=== PATIENT | female | born 1955 | race Caucasian/White ===

== ENCOUNTER → 2018-01-01 17:53 | Outpatient (CLI) | payer OTHER, SELFPAY ==
[2018-01-01 18:43] LABS: Add Manual Diff / Slide Review NO; Basophils Percent Auto 0.3 % (0-2); Eosinophils Percent Auto 0.9 % (2-4); Hematocrit 38.9 % (36-46); Hemoglobin 13.1 g/dL (12.0-16.0); Lymphocytes Percent Auto 13.6 % (25-40); Mean Corpuscular HGB Conc 33.8 % (30-36); Mean Corpuscular Hemoglobin 31.2 PG (26-34); Mean Corpuscular Volume 92.4 fL (80-100); Monocytes Percent Auto 10.1 % (3-14); Neutrophils Absolute Auto 5300 /uL (3000-5900); Neutrophils Percent Auto 75.1 % (50-75); Platelet Count 293 X10^3/uL (150-400); Red Blood Cell Count 4.21 X10^6/uL (4.0-5.2); Red Cell Distribution Width 13.5 % (11.6-14.8); White Blood Cell Count 7.1 X10^3/uL (4.5-11.0)
[2018-01-01 18:57] LABS: Alanine Aminotransferase 34 IU/L (9-52); Albumin 4.6 g/dL (3.5-5.0); Albumin Globulin Ratio 1.8 (1.0-2.8); Alkaline Phosphatase 53 U/L (38-126); Aspartate Aminotransferase 31 IU/L (14-36); BUN Creatinine Ratio 16.7 (6-22); Bilirubin Total 0.5 mg/dL (0.2-1.3); Blood Urea Nitrogen 10 mg/dL (7-17); Calcium 9.2 mg/dL (8.4-10.2); Carbon Dioxide 31 mmol/L (22-32); Chloride 95 mmol/L (98-107); Estimated Glomerular Filt Rate > 60.0 mL/min (>60); Globulin 2.5 g/dL (1.7-4.1); Glucose 98 mg/dL (80-110); HEMOLYSIS 21 (0-50); Lipase 140 U/L (23-300); Sodium 136 mmol/L (137-145); Total Protein 7.1 g/dL (6.3-8.2)
== END ==
PROVIDERS: PCP Internal Medicine; Visit Provider Physician Assistant
DX: R10.9 Unspecified abdominal pain (principal)
CPT/HCPCS: 36415; 80053; 83690; 85025

== ENCOUNTER → 2018-02-09 13:06 | Outpatient (CLI) | payer OTHER, SELFPAY | PROVIDERS: Family Provider Internal Medicine; PCP Internal Medicine; Visit Provider Internal Medicine | DX: M81.0 Age-related osteoporosis without current pathological fracture (principal); Z78.0 Asymptomatic menopausal state; E07.9 Disorder of thyroid, unspecified; G35 Multiple sclerosis; Z82.62 Family history of osteoporosis; Z90.722 Acquired absence of ovaries, bilateral | CPT/HCPCS: 77080 ==

== ENCOUNTER → 2018-04-17 17:12 | Outpatient (CLI) | payer OTHER, SELFPAY ==
[2018-04-17 17:45] LABS: Add Manual Diff / Slide Review NO; Basophils Absolute Auto 0 /uL (0-100); Basophils Percent Auto 0.9 % (0-2); Eosinophils Absolute Auto 100 /uL (0-450); Eosinophils Percent Auto 1.5 % (2-4); Hematocrit 37.8 % (36-46); Hemoglobin 13.1 g/dL (12.0-16.0); Lymphocytes Absolute Auto 1000 /uL (1100-4500); Lymphocytes Percent Auto 22.7 % (25-40); Mean Corpuscular HGB Conc 34.8 % (30-36); Mean Corpuscular Hemoglobin 31.6 PG (26-34); Mean Corpuscular Volume 90.9 fL (80-100); Monocytes Absolute Auto 500 /uL (0-900); Monocytes Percent Auto 12.1 % (3-14); Neutrophils Absolute Auto 2700 /uL (1500-7000); Neutrophils Percent Auto 62.8 % (50-75); Platelet Count 287 X10^3/uL (150-400); Red Blood Cell Count 4.16 X10^6/uL (4.0-5.2); Red Cell Distribution Width 13.9 % (11.6-14.8); White Blood Cell Count 4.3 X10^3/uL (4.5-11.0)
[2018-04-17 18:06] LABS: Alanine Aminotransferase 38 IU/L (9-52); Albumin 4.9 g/dL (3.5-5.0); Albumin Globulin Ratio 1.6 (1.0-2.8); Alkaline Phosphatase 76 U/L (38-126); Aspartate Aminotransferase 31 IU/L (14-36); BUN Creatinine Ratio 24.4 (6-22); Bilirubin Total 0.4 mg/dL (0.2-1.3); Blood Urea Nitrogen 22 mg/dL (7-17); Calcium 9.6 mg/dL (8.4-10.2); Carbon Dioxide 28 mmol/L (22-32); Chloride 91 mmol/L (98-107); Estimated Glomerular Filt Rate > 60.0 mL/min (>60); Glucose 84 mg/dL (80-110); HEMOLYSIS < 15 (0-50); Potassium 4.6 mmol/L (3.4-5.1); Sodium 130 mmol/L (137-145); Total Protein 7.9 g/dL (6.3-8.2)
== END ==
PROVIDERS: PCP Internal Medicine; Visit Provider Physician Assistant
DX: G35 Multiple sclerosis (principal); E03.9 Hypothyroidism, unspecified
CPT/HCPCS: 36415; 80053; 84443; 85025

== ENCOUNTER → 2018-05-04 11:57 | Outpatient (CLI) | payer OTHER, SELFPAY ==
--- NOTE | 2018-05-04 | DI.MRI.S_ITS ---
PROCEDURE: MR CERVICAL SPINE WO CON INDICATIONS: PERIPHERAL ARTERY DISEASE - neck pain TECHNIQUE: Noncontrast sagittal T1 spin echo and T2 fast spin echo, sagittal STIR, foraminal oblique sagittal T2 fast spin echo, and axial gradient echo or T2 fast spin echo through the cervical spine. COMPARISON: [facility], CT, C-SPINE WITHOUT CONTRAST, 12/26/2015, 15:25. [facility], MR, C-SPINE W&WO CONTRAST, 06/22/2017, 13:43. FINDINGS: Image quality: Excellent. Alignment and Curvature: There is focal kyphosis in the lower cervical spine. There is grade 1 anterolisthesis at C3-C4 and C4-C5. Bone Marrow: Marrow demonstrates normal overall signal. Spinal Cord: Visualized spinal cord has normal size. Patchy foci of T2 hyperintensity are present in the cervical cord at the cervical cranial junction, C2, C4, C5 and C7-T1, minimally changed. No cerebellar tonsillar herniation. Paraspinous Soft Tissues: No paravertebral masses. Prevertebral soft tissues are normal in thickness. C2-C3: Preserved disc height. Mild disc desiccation. There is diffuse posterior disc bulge. Mild bilateral facet arthropathy. The central canal is patent. No foraminal stenosis. C3-C4: Preserved disc height. Mild disc desiccation. There is diffuse posterior disc bulge. Severe right and moderate left facet arthropathy. The central canal is patent. Moderate left and no significant right foraminal stenosis. C4-C5: Iegg-jk-onujcnym loss of disc height. Mild disc desiccation. There is diffuse posterior disc bulge and large posterior disc osteophyte complex. Bilateral uncovertebral hypertrophy. Moderate left and mild right facet arthropathy. The central canal is jqpq-wb-qwurbfytns narrowed. Moderate bilateral foraminal stenosis. C5-C6: Surgically fused. There is posterior osteophyte causing ssxc-ou-zklqsqhp central canal stenosis. Moderate right and mild left foraminal stenosis. C6-C7: Surgically fused. The central canal is patent. No foraminal stenosis. C7-T1: Mild loss of disc height and disc desiccation. No significant disc bulge. No central canal or foraminal stenosis. IMPRESSION: 1. Multiple foci of T2 hyperintense lesions involving the cervical cord as described, consistent with known history of multiple sclerosis. Compared to the last MRI, there is no significant change. 2. Multilevel degenerative and postsurgical as described. 3. Guwv-he-zbtqqifk central canal stenosis at C4-C5 and C5-C6. 4. Multilevel foraminal stenosis as described. Dictated by: Romeo Blum M.D. on 05/04/2018 at 13:48 Approved by: Romeo Blum M.D. on 05/04/2018 at 17:37
--- NOTE | 2018-05-04 | DI.US.S_ITS ---
PROCEDURE: US ARTERIAL DUPLEX LE BI INDICATIONS: PERIPHERAL ARTERY DISEASE TECHNIQUE: Color and pulse Doppler interrogation was performed of both lower extremity arterial systems, with image documentation. COMPARISON: None. FINDINGS: Right lower extremity: Common femoral artery: 122 cm/sec, with triphasic flow. Deep femoral artery: 51 cm/sec, with triphasic flow. Proximal superficial femoral artery: 84 cm/sec, with triphasic flow. Mid superficial femoral artery: 80 cm/sec, with triphasic flow. Distal superficial femoral artery: 51 cm/sec, with triphasic flow. Popliteal artery: 45 cm/sec, with triphasic flow. Posterior tibial artery: 28 cm/sec, with triphasic flow. Anterior tibial artery/dorsalis pedis: 47 cm/sec, with triphasic flow. Beck-scale imaging description: No hemodynamically significant stenosis. Left lower extremity: Common femoral artery: 129 cm/sec, with triphasic flow. Deep femoral artery: 49 cm/sec, with triphasic flow. Proximal superficial femoral artery: 94 cm/sec, with triphasic flow. Mid superficial femoral artery: 94 cm/sec, with triphasic flow. Distal superficial femoral artery: 54 cm/sec, with triphasic flow. Popliteal artery: 44 cm/sec, with triphasic flow. Posterior tibial artery: 68 cm/sec, with triphasic flow. Anterior tibial artery/dorsalis pedis: 57 cm/sec, with triphasic flow. Beck-scale imaging description: No hemodynamically significant stenosis. IMPRESSION: No hemodynamically significant stenosis of the bilateral lower extremity arteries. Dictated by: Polly Carreon M.D. on 05/04/2018 at 16:41 Approved by: Polly Carreon M.D. on 05/04/2018 at 16:48
== END ==
PROVIDERS: PCP Internal Medicine; Visit Provider Internal Medicine
DX: I73.9 Peripheral vascular disease, unspecified (principal); M54.2 Cervicalgia; M47.812 Spondylosis without myelopathy or radiculopathy, cervical region; M48.02 Spinal stenosis, cervical region; G35 Multiple sclerosis; Z98.1 Arthrodesis status
CPT/HCPCS: 72141; 93925

== ENCOUNTER → 2018-05-11 15:47 | Outpatient (CLI) | payer OTHER, SELFPAY ==
[2018-05-11 17:43] LABS: Thyroid Stimulating Hormone 1.48 uIU/mL (0.47-4.68)
== END ==
PROVIDERS: PCP Internal Medicine; Visit Provider Internal Medicine
DX: E03.9 Hypothyroidism, unspecified (principal)
CPT/HCPCS: 36415; 84443

== ENCOUNTER → 2018-05-26 12:58 | Outpatient (CLI) | payer OTHER, SELFPAY ==
--- NOTE | 2018-05-26 | DI.MG.S_ITS ---
BILATERAL DIGITAL SCREENING MAMMOGRAM 3D/2D WITH CAD: 05/26/2018 CLINICAL: Routine screening. Family history of breast cancer. Comparison is made to exams dated: 05/17/2017 mammogram, 01/23/2016 mammogram, and 01/17/2015 mammogram - [facility]. The tissue of both breasts is heterogeneously dense. This may lower the sensitivity of mammography. Current study was also evaluated with a Computer Aided Detection (CAD) system. No significant masses, calcifications, or other findings are seen in either breast. There has been no significant interval change. IMPRESSION: NEGATIVE There is no mammographic evidence of malignancy. A 1 year screening mammogram is recommended. This exam was interpreted at Station ID: [id number]. NOTE: For mammograms, a report in lay terms will be sent to the patient. Approximately 15% of breast malignancies will not be visualized mammographically. In the management of a palpable breast mass, a negative mammogram must not discourage biopsy of a clinically suspicious lesion. Electronically Signed By: Polly carey/brooklynn:05/26/2018 16:49:15 letter sent: Normal Exam ACR BI-RADS Category 1: Negative [id number]
[2018-05-26 15:01] LABS: BUN Creatinine Ratio 33.3 (6-22); Blood Urea Nitrogen 20 mg/dL (7-17); Carbon Dioxide 28 mmol/L (22-32); Chloride 94 mmol/L (98-107); Estimated Glomerular Filt Rate > 60.0 mL/min (>60); Glucose 79 mg/dL (80-110); HEMOLYSIS < 15 (0-50); Potassium 4.8 mmol/L (3.4-5.1); Sodium 132 mmol/L (137-145)
== END ==
PROVIDERS: PCP Internal Medicine; Visit Provider Internal Medicine
DX: Z12.31 Encounter for screening mammogram for malignant neoplasm of breast (principal); Z80.3 Family history of malignant neoplasm of breast; E87.1 Hypo-osmolality and hyponatremia
CPT/HCPCS: 36415; 77063; 77067; 80048

== ENCOUNTER → 2018-07-17 13:58 | Oncology outpatient (ONC) | payer OTHER, SELFPAY ==
[2018-07-17 15:44] VITALS: BP 131/87; PULSE 65; RESP 16; TEMP 36.6; O2SAT 100
[2018-07-17 15:55] LABS: BUN Creatinine Ratio 26.7 (6-22); Blood Urea Nitrogen 16 mg/dL (7-17); Estimated Glomerular Filt Rate > 60.0 mL/min (>60)
[2018-07-17] MEDS: ZOLEDRONIC ACID 5 MG in SODIUM CHLORIDE 0.9% 100 ML 145 ML IV (16:11)
== END ==
PROVIDERS: PCP Internal Medicine; Visit Provider Internal Medicine
DX: M81.0 Age-related osteoporosis without current pathological fracture (principal)
CPT/HCPCS: 36415; 82565; 84520; 96365; J3489

== ENCOUNTER → 2018-12-25 13:51 | Outpatient (CLI) | payer OTHER, SELFPAY ==
--- NOTE | 2018-12-25 | DI.MRI.S_ITS ---
PROCEDURE: MR HEAD/BRAIN WO/W CON INDICATIONS: Multiple sclerosis TECHNIQUE: Noncontrast sagittal and axial FLAIR, axial and coronal T2 fast spin echo, axial VIBE, axial gradient echo, axial diffusion and ADC through the brain. After the administration of contrast, axial and coronal VIBE with fat saturation through the brain. COMPARISON: [facility], MR, BRAIN W&WO CONTRAST, 07/10/2014, 12:48. [facility], MR, BRAIN W&WO CONTRAST, 08/09/2012, 13:19. FINDINGS: Image quality: Excellent. CSF spaces: Ventricles are normal in size and shape. Basal cisterns are patent. No extra-axial fluid collections. Brain: No intracranial bleeds or mass effects. Beck-white matter interface appears intact. Previously identified bilateral (right greater than left) foci of elevated flair signal consistent with underlying multiple sclerosis are stable over time and show no interval development of internal enhancement. These lesions are consistent with a clinical diagnosis of underlying quiecent multiple sclerosis. No abnormal intracranial enhancement. Diffusion weighted images show no acute ischemic insults. Brainstem appears normal. Normal intravascular flow voids are present. Skull and face: Calvarial marrow signal is normal. Orbits appear normal. Sinuses: Sinuses and mastoids are clear. IMPRESSION: Stable appearing right greater than left foci of elevated flair signal scattered within the deep white matter of each hemisphere, without new lesions or evidence of contrast enhancement. Underlying multiple sclerosis, quiecent, is the likely cause. Dictated by: Herman Waldrop M.D. on 12/25/2018 at 15:39 Approved by: Herman Waldrop M.D. on 12/25/2018 at 15:42
== END ==
PROVIDERS: PCP Internal Medicine; Visit Provider Internal Medicine
DX: G35 Multiple sclerosis (principal)
CPT/HCPCS: 36415; 70553; 85025; A9579

== ENCOUNTER → 2018-12-25 14:50 | Outpatient (CLI) | payer OTHER, SELFPAY ==
[2018-12-25 15:59] LABS: Add Manual Diff / Slide Review NO; Basophils Absolute Auto 100 /uL (0-100); Basophils Percent Auto 1.8 % (0-2); Eosinophils Absolute Auto 100 /uL (0-450); Eosinophils Percent Auto 1.3 % (2-4); Hemoglobin 12.7 g/dL (12.0-16.0); Lymphocytes Absolute Auto 900 /uL (1100-4500); Lymphocytes Percent Auto 18.2 % (25-40); Mean Corpuscular HGB Conc 34.3 % (30-36); Mean Corpuscular Hemoglobin 31.2 PG (26-34); Mean Corpuscular Volume 90.9 fL (80-100); Monocytes Absolute Auto 500 /uL (0-900); Neutrophils Absolute Auto 3500 /uL (1500-7000); Neutrophils Percent Auto 69.7 % (50-75); Platelet Count 314 X10^3/uL (150-400); Red Blood Cell Count 4.07 X10^6/uL (4.0-5.2); Red Cell Distribution Width 14.2 % (11.6-14.8)
== END ==
PROVIDERS: Family Provider Internal Medicine; PCP Internal Medicine; Visit Provider Psychiatry & Neurology Neurology
DX: G35 Multiple sclerosis (principal)
CPT/HCPCS: 36415; 85025

== ENCOUNTER → 2019-02-01 15:59 | Outpatient (ROUT) | payer OTHER, SELFPAY ==
[2019-02-01 16:54] LABS: Add Manual Diff / Slide Review NO; Basophils Absolute Auto 100 /uL (0-100); Basophils Percent Auto 1.2 % (0-2); Eosinophils Absolute Auto 100 /uL (0-450); Hematocrit 35.8 % (36-46); Hemoglobin 12.2 g/dL (12.0-16.0); Lymphocytes Absolute Auto 900 /uL (1100-4500); Lymphocytes Percent Auto 17.4 % (25-40); Mean Corpuscular HGB Conc 34.2 % (30-36); Mean Corpuscular Hemoglobin 31.8 PG (26-34); Mean Corpuscular Volume 92.9 fL (80-100); Monocytes Absolute Auto 600 /uL (0-900); Neutrophils Absolute Auto 3400 /uL (1500-7000); Neutrophils Percent Auto 68.4 % (50-75); Platelet Count 316 X10^3/uL (150-400); Red Blood Cell Count 3.85 X10^6/uL (4.0-5.2); Red Cell Distribution Width 13.6 % (11.6-14.8); White Blood Cell Count 4.9 X10^3/uL (4.5-11.0)
[2019-02-01 16:58] LABS: Alanine Aminotransferase 24 IU/L (<35); Albumin 4.3 g/dL (3.5-5.0); Albumin Globulin Ratio 1.7 (1.0-2.8); Alkaline Phosphatase 63 U/L (38-126); Aspartate Aminotransferase 29 IU/L (14-36); BUN Creatinine Ratio 25.7 (6-22); Bilirubin Total 0.3 mg/dL (0.2-1.3); Blood Urea Nitrogen 18 mg/dL (7-17); Calcium 9.4 mg/dL (8.4-10.2); Carbon Dioxide 29 mmol/L (22-32); Chloride 96 mmol/L (98-107); Cholesterol 165 mg/dL (140-199); Estimated Glomerular Filt Rate > 60.0 mL/min (>60); Globulin 2.6 g/dL (1.7-4.1); Glucose 71 mg/dL (80-110); HDL Cholesterol 101 mg/dL (40-60); HEMOLYSIS < 15 (0-50); LDL Cholesterol Calculated 49 mg/dL (<100); Potassium 4.3 mmol/L (3.4-5.1); Sodium 133 mmol/L (137-145); Total Protein 6.9 g/dL (6.3-8.2); Triglycerides 73 mg/dL (35-150)
[2019-02-01 17:29] LABS: Thyroid Stimulating Hormone 0.03 uIU/mL (0.47-4.68)
== END ==
PROVIDERS: Family Provider Internal Medicine; PCP Internal Medicine; Visit Provider Internal Medicine
DX: Z00.00 Encounter for general adult medical examination without abnormal findings (principal); G35 Multiple sclerosis; E03.9 Hypothyroidism, unspecified
CPT/HCPCS: 80053; 80061; 84443; 85025

== ENCOUNTER → 2019-02-21 14:13 | Outpatient (CLI) | payer OTHER, SELFPAY ==
[2019-02-21 15:24] LABS: Thyroid Stimulating Hormone 1.62 uIU/mL (0.47-4.68)
== END ==
PROVIDERS: PCP Internal Medicine; Visit Provider Internal Medicine
DX: E03.9 Hypothyroidism, unspecified (principal)
CPT/HCPCS: 36415; 84443

== ENCOUNTER → 2019-08-17 18:52 | Outpatient (ROUT) | payer OTHER, SELFPAY | PROVIDERS: PCP Internal Medicine; Visit Provider Physician Assistant | DX: N39.0 Urinary tract infection, site not specified (principal) | CPT/HCPCS: 87077; 87086; 87147 ==

== ENCOUNTER 2019-10-25 16:05 | Emergency (ER) | payer OTHER, SELFPAY ==
--- NOTE | 2019-10-25 16:10 | ED_ITS ---
HPI - Extremity Injury (Upper) <Mag Dai PA-C - Last Filed: 10/25/19 21:47> General Chief Complaint: Extremity Injury, Upper Stated Complaint: fall, dislocated finger Time Seen by Provider: 10/25/19 16:09 Source: patient and family History of Present Illness HPI narrative: this Is a 63-year-old woman with a history of MS, HTN, uses a walker who presents POV with her to the emergency department after sustaining a fall and injuring her left finger today. She has a dislocated left middle finger she says she falls frequently due to MS which is what happened today. She denies hitting her head, loss of consciousness, any prodrome of dizziness or lightheadedness prior to the fall, any dizziness or lightheadedness after the fall, or any other injury. She refuses any pain medicines including Tylenol and ibuprofen, she accepts a digital block prior to reduction. She does also say she would be willing to accept some ice to place on her finger. She states she has a 10/10 pain in her left finger. Denies numbness/tingling. complaint: injury to: left and finger Onset (ago): minute(s) (30) Other Extremity Injury: Left: fingers (middle) Other injuries: none Place: home Severity: severe Severity scale (1-10): 10 Relieving factors: none Exacerbating factors: movement of extremity Context: fall Associated symptoms: denies other symptoms Related Data Home Medications Medication Instructions Recorded Confirmed BORAGE SEED OIL/GAMMA LINOLE 1 sgl PO QDAY #0 12/01/12 01/01/18 (#BORAGE 1000 MG-200 MG) amlodipine 5 mg PO QPM #0 12/01/12 10/25/19 clonazepam 0.25 mg PO QID #0 tab 12/01/12 10/25/19 lisinopril 20 mg PO QDAY #0 12/01/12 10/25/19 spironolactone 50 mg PO BID #0 tab 12/17/15 10/25/19 carbamazepine 200 mg PO QID #0 01/27/17 10/25/19 nortriptyline 50 mg PO BID #0 01/27/17 10/25/19 clonidine HCl #0 06/01/17 01/01/18 calcium carbonate 1 tab PO QDAY #0 06/07/17 01/01/18 clobetasol 1 nuria TOPICAL BID #0 06/07/17 01/01/18 multivitamin [Multiple Vitamins] 1 tab PO QDAY #0 06/07/17 01/01/18 polyethylene glycol 3350 [Miralax] 17 gm PO PRN PRN #0 06/07/17 01/01/18 vitamin B complex [B 1 tab PO QDAY #0 06/07/17 10/25/19 Complex-Vitamin B12] carvedilol 25 mg PO BID 10/25/19 10/25/19 gabapentin 300 mg PO TID 10/25/19 10/25/19 methocarbamol 750 mg PO 5XD 10/25/19 10/25/19 Previous Rx's Medication Instructions Recorded loperamide 2 mg tablet 2 mg PO Q2-4H PRN #30 tab 01/01/18 omeprazole 20 mg capsule,delayed 20 mg PO DAILY PRN #30 cap 01/01/18 release Allergies Allergy/AdvReac Type Severity Reaction Status Date / Time adhesive [ADHESIVE] Allergy Intermediate RASH Verified 10/25/19 16:20 erythromycin base Allergy Intermediate RASH Verified 01/01/18 16:34 [ERYTHROMYCIN BASE] fluoxetine [From PROZAC] Allergy Intermediate ANXIOUS, Verified 10/25/19 16:20 JITTERY metoprolol [METOPROLOL] Allergy Intermediate RASH Verified 10/25/19 16:20 neomycin Allergy Intermediate RASH Verified 10/25/19 16:20 [From NEOSPORIN ([id number])] polymyxin B Allergy Intermediate RASH Verified 01/01/18 16:34 [From NEOSPORIN ([id number])] sertraline [From ZOLOFT] Allergy Intermediate UPSET Verified 10/25/19 16:20 STOMACH, NO LIBIDO iodine [IODINE] Allergy Mild RASH Verified 10/25/19 16:20 nitrofurantoin Allergy Unknown Gastrointestinal Verified 10/25/19 16:20 [NITROFURANTOIN] Upset codeine [CODEINE] AdvReac Severe STOMACH Verified 10/25/19 16:20 UPSET,VOMITING. venlafaxine [VENLAFAXINE] AdvReac Unknown NO LIBIDO Verified 01/01/18 16:34 Review of Systems <Mag Dai PA-C - Last Filed: 10/25/19 21:47> Review of Systems Narrative: GENERAL: Denies chills, fatigue, malaise, fever, sweats. HEENT: Denies sinus pain, ear pain, sore throat, difficulty swallowing, dizziness. RESPIRATORY: Denies dyspnea, cough, wheezing, hemoptysis, sputum. CARDIOVASCULAR: Denies chest pain, palpitations, orthopnea, edema, GASTROINTESTINAL: Denies nausea, vomiting, abdominal pain, diarrhea, constipation, melena. : Denies dysuria, frequency, incontinence, hematuria, urinary retention. MUSCULOSKELETAL: denies weakness, joint pain, or bony pain SKIN: Denies rash, skin lesions, or other NEUROLOGIC: Chronic weakness related to her MS, negative for, headache, numbness, change in speech, confusion, seizures, positive for incoordination related to her MS uses a walker. PSYCHIATRIC: No concerning psychosocial issues. 12 point review of systems is negative except for those stated above Patient History <Mag Dai PA-C - Last Filed: 10/25/19 21:47> Social History Smoking Status: Never smoker Smoking Status: Never smoker Exam <Mag Dai PA-C - Last Filed: 10/25/19 21:47> Narrative Exam Narrative: GENERAL: 63 year old patient appears stated age. Well-nourished, well-developed patient, in moderate distress. HEAD: Atraumatic. Normocephalic. EYES: Pupils equal round and reactive. Extraocular motions intact. No scleral icterus. No injection or drainage. ENT: Nose without bleeding, purulent drainage. Throat without erythema, tonsillar hypertrophy or exudate. Airway patent. NECK: Trachea midline. Non tender CARDIOVASCULAR: Regular rate and rhythm without murmurs, gallops, or rubs. RESPIRATORY: Clear to auscultation. Breath sounds equal bilaterally. No wheezes, rales, or rhonchi. GASTROINTESTINAL: Abdomen soft, non-tender, nondistended. EXTREMITIES: Left middle finger is posteromedially displaced/deformed at the PIP joint, dislocated, skin is not broken, capillary refill is intact, 3 seconds skin color is pink, sensation is intact, the proximal digit is slighlty swollen. No other edema or joint tenderness. On re-examination after reduction her capillary refill is less than 2 seconds, skin remains pink, sensation intact. Movement is intact. BACK: Nontender without deformity or crepitance. No flank tenderness. NEURO: AOx3. SKIN: No rash or erythema of visible areas Initial Vital Signs Initial Vital Signs: Vital Signs Temperature 98.8 F 10/25/19 16:12 Pulse Rate 70 10/25/19 16:12 Respiratory Rate 16 10/25/19 16:12 Blood Pressure 201/121 H 10/25/19 16:12 Pulse Oximetry 98 10/25/19 16:12 <Shahram Flynn MD - Last Filed: 10/26/19 08:45> Initial Vital Signs Initial Vital Signs: Vital Signs Temperature 98.8 F 10/25/19 16:12 Pulse Rate 70 10/25/19 16:12 Respiratory Rate 16 10/25/19 16:12 Blood Pressure 201/121 H 10/25/19 16:12 Pulse Oximetry 98 10/25/19 16:12 Procedures <Mag Dai PA-C - Last Filed: 10/25/19 21:47> Orthopedic Joint Reduction Joint #1: Time Out Performed: Yes Side: left Joint Reduction Location: finger (3rd fignger PIP) Analgesia: nerve block (digital block) Local Anesthesia: lidocaine 2% Amount of anesthesic used (mL): 6 Technique used: traction/counter-traction and direct manipulation Post-reduction neuro exam: intact Post-reduction vascular: intact Post Reduction X-Ray Obtained: Yes Post Reduction X-Ray Results: reduced Splint Applied: Yes Patient Tolerated Procedure: Well and No complications Additional Comments: negative for fracture pre and post reduction; patient splinted with finger splint and reassessed after splinting, neurovascularly intact Scores <Mag Dai PA-C - Last Filed: 10/25/19 21:47> GCS [place] coma scale eye opening: Spontaneous Bharat coma scale verbal response: Orientated [place] coma scale motor response: Obey commands Bharat coma scale total score: 15 Course <Mag Dai PA-C - Last Filed: 10/25/19 21:47> Orders Ordered: Discontinued Medications Lidocaine HCl (Xylocaine 1%) 8 ml SUBCUT NOW ONE Stop: 10/25/19 16:31 Last Admin: 10/25/19 17:42 Dose: Not Given Documented by: MYRNA Vital Signs Vital signs: Vital Signs - 8 hr 10/25/19 16:12 Temperature 98.8 F Pulse Rate 70 Respiratory Rate 16 Blood Pressure 201/121 H Pulse Oximetry 98 <Shahram Flynn MD - Last Filed: 10/26/19 08:45> Orders Ordered: Discontinued Medications Lidocaine HCl (Xylocaine 1%) 8 ml SUBCUT NOW ONE Stop: 10/25/19 16:31 Last Admin: 10/25/19 17:42 Dose: Not Given Documented by: MYRNA Vital Signs Vital signs: Vital Signs - 8 hr 10/25/19 16:12 Temperature 98.8 F Pulse Rate 70 Respiratory Rate 16 Blood Pressure 201/121 H Pulse Oximetry 98 MDM - Extremity Injury (Upper) <Mag Dai PA-C - Last Filed: 10/25/19 21:47> Differential Diagnosis Differential diagnosis: Likely finger sprain, dislocation of finger and other (sprain and strain of finger) Medical Records Attestation: I reviewed the patient's medical records. Imaging Data Extremity x-ray #1: Attestation: I personally reviewed and interpreted this imaging study as follows: Radiologist's Impression: [address] [address] XRay Report Signed Patient: Enedina Tuttle GMR#: [id number] : 5Acct:[id number] Age/Sex: 63 / FDate of Service: 10/25/19 Loc: ED Accession Number: [id number] Procedure: XR finger LT min 2V Ordering Provider: Mag Dai P.A-C PROCEDURE: XR FINGER LT MIN 2V INDICATIONS: dislocation TECHNIQUE: AP hand, 2 views of the left finger(s) acquired. COMPARISON: None. FINDINGS: Bones: Dislocation of the middle finger PIP joint. No fracture identified. Soft tissues: No suspicious soft tissue calcifications. IMPRESSION: Dislocation of the middle finger PIP joint. Dictated by: Gabriel Blanchard M.D. on 10/25/2019 at 16:45 Approved by: Gabriel Blanchard M.D. on 10/25/2019 at 16:47 Extremity x-ray #2: Attestation: I personally reviewed and interpreted this imaging study as follows: Radiologist's Impression: [address] [address] XRay Report Signed Patient: Enedina Tuttle GMR#: [id number] : 5Acct:[id number] Age/Sex: 63 / FDate of Service: 10/25/19 Loc: ED Accession Number: [id number] Procedure: XR finger LT min 2V Ordering Provider: Mag Dai P.A-C PROCEDURE: XR FINGER LT MIN 2V INDICATIONS: post reduction xr TECHNIQUE: AP hand, 2 views of the 5th finger(s) acquired. COMPARISON: [facility], , XR FINGER LT MIN 2V, 10/25/2019, 16:24. FINDINGS: Bones: Interval reduction of 5th PIP joint. There is good anatomic alignment. No visualized fracture. Soft tissues: No suspicious soft tissue calcifications. IMPRESSION: Good anatomic alignment of 5th PIP joint reduction without visu alized fracture. Dictated by: Annie Brooks M.D. on 10/25/2019 at 17:36 Approved by: Annie Brooks M.D. on 10/25/2019 at 17:37 [facility] Narrative Medical decision making narrative: This is an uncomfortable appearing 63-year-old with a history of MS who presents with a left middle finger dislocation with angulation, skin is not broken, no evidence of fracture on x- ray pre and post reduction. She has reduced without incident, after digital block as above and procedures, she prefers no prescription for stronger pain medicine, plan to follow-up with her PCP also given the option to follow up with Orthopedics if she prefers. Splinted for support. He has no other injuries on exam, no other tenderness or pain of her affected hand. Neurovascularly intact after splinting. Emergency return precautions provided, all questions answered. Discharge Plan Departure Patient Disposition: Home Clinical Impression: Finger pain, left Dislocation of proximal interphalangeal joint of left middle finger Qualifiers: Encounter type: initial encounter Qualified Code(s): S63.283A - Dislocation of proximal interphalangeal joint of left middle finger, initial encounter Discharge Date/Time: 10/25/19 17:55 Instructions: DI for Finger Dislocation Activity Restrictions/Additional Instructions: Thank you for allowing us to be part of your care in the emergency department today. After icing and performing a digital block on your injured finger, as well as an initial x-ray your finger was reduced. It was x-rayed again to evaluate for proper placement and splinted. There is no evidence of an emergent or life threatening illness at this time, but follow up with your doctor in 1-5 days is recommended nonetheless to re-evaluate your injury. I generally recommend alternating Tylenol and ibuprofen for pain if he can take his medications, you can also continue to ice her finger on and off tonight, elevated above the level of your heart as much as possible over the next few days, and keep it splinted to protect it both from injury and to keep you from bending it too much. It is at a higher risk of dislocating again until it has a little bit of a chance to heal which is why it is important to keep wearing a splint to have your joint in alignment for at least the next 1-2 weeks. If you would like to follow-up with an orthopedic doctor that is an option, I have included their information here in your paperwork. It is also fine to follow up with your regular primary care doctor. Please call the office for an appointm ent. Please return to the Emergency Department for any worsening or persistent symptoms. Please take medications as directed. Prescriptions: No Action omeprazole 20 mg capsule,delayed release(DR/EC) 20 mg PO DAILY PRN (Reason: stomach upset) Qty: 30 RF: 0 loperamide [Imodium A-D] 2 mg tablet 2 mg PO Q2-4H PRN (Reason: loose stool) Qty: 30 RF: 0 amlodipine 10 MG tablet 5 mg PO QPM Qty: 0 RF: 0 clonazepam 0.5 MG tablet 0.25 mg PO QID Qty: 0 RF: 0 lisinopril 20 MG tablet 20 mg PO QDAY Qty: 0 RF: 0 BORAGE SEED OIL/GAMMA LINOLE (#BORAGE 1000 MG-200 MG) 1 sgl PO QDAY Qty: 0 RF: 0 spironolactone 50 MG tablet 50 mg PO BID Qty: 0 RF: 0 carbamazepine 200 MG tablet 200 mg PO QID Qty: 0 RF: 0 nortriptyline 25 MG capsule 50 mg PO BID Qty: 0 RF: 0 clonidine HCl 0.3 MG tablet Qty: 0 RF: 0 calcium carbonate 500 MG tablet 1 tab PO QDAY Qty: 0 RF: 0 clobetasol 0.05 % ointment 1 nuria Topical BID Qty: 0 RF: 0 polyethylene glycol 3350 [Miralax] 17 GM powder in packet 17 gm PO PRN PRNQty: 0 RF: 0 multivitamin [Multiple Vitamins] 1 EACH tablet 1 tab PO QDAY Qty: 0 RF: 0 vitamin B complex [B Complex-Vitamin B12] 1 EACH tablet 1 tab PO QDAY Qty: 0 RF: 0 carvedilol 25 mg Tablet 25 mg PO BID RF: 0 methocarbamol 750 mg Tablet 750 mg PO 5XD RF: 0 gabapentin 300 mg Capsule 300 mg PO TID RF: 0 Referrals: Destiny Hurley MD [Physician] - (Left 3rd finger dislocation, PIP, reduced in ED negative fracture) Brian Willams MD [Primary Care Provider] -
[2019-10-25 16:12] VITALS: BP 201/121; PULSE 70; RESP 16; TEMP 37.1; O2SAT 98; BMI 21.6
--- NOTE | 2019-10-25 17:03 | DI.RAD.S_ITS ---
PROCEDURE: XR FINGER LT MIN 2V INDICATIONS: post reduction xr TECHNIQUE: AP hand, 2 views of the 5th finger(s) acquired. COMPARISON: [facility], , XR FINGER LT MIN 2V, 10/25/2019, 16:24. FINDINGS: Bones: Interval reduction of 5th PIP joint. There is good anatomic alignment. No visualized fracture. Soft tissues: No suspicious soft tissue calcifications. IMPRESSION: Good anatomic alignment of 5th PIP joint reduction without visualized fracture. Dictated by: Annie Brooks M.D. on 10/25/2019 at 17:36 Approved by: Annie Brooks M.D. on 10/25/2019 at 17:37
[2019-10-25] MEDS: LIDOCAINE 2% INJ MDV 20 ML (17:42)
== END 2019-10-25 17:55 | disposition home or self-care (01) ==
PROVIDERS: Emergency Provider Student in an Organized Health Care Education/Training Program; PCP Internal Medicine
DX: S63.283A Dislocation of proximal interphalangeal joint of left middle finger, initial encounter (principal); G35 Multiple sclerosis; Z91.81 History of falling; W19.XXXA Unspecified fall, initial encounter
CPT/HCPCS: 26700; 64450; 73140; 99283

== ENCOUNTER → 2019-12-19 16:09 | Outpatient (CLI) | payer OTHER, SELFPAY ==
[2019-12-19 17:54] LABS: Add Manual Diff / Slide Review NO; Basophils Absolute Auto 0 /uL (0-100); Basophils Percent Auto 0.8 % (0-2); Eosinophils Absolute Auto 100 /uL (0-450); Eosinophils Percent Auto 1.2 % (2-4); Hematocrit 37.5 % (36-46); Lymphocytes Absolute Auto 900 /uL (1100-4500); Lymphocytes Percent Auto 19.3 % (25-40); Mean Corpuscular HGB Conc 34.6 % (30-36); Mean Corpuscular Hemoglobin 31.7 PG (26-34); Mean Corpuscular Volume 91.6 fL (80-100); Monocytes Absolute Auto 500 /uL (0-900); Monocytes Percent Auto 9.6 % (3-14); Neutrophils Absolute Auto 3300 /uL (1500-7000); Neutrophils Percent Auto 69.1 % (50-75); Platelet Count 256 X10^3/uL (150-400); Red Cell Distribution Width 13.6 % (11.6-14.8); White Blood Cell Count 4.7 X10^3/uL (4.5-11.0)
[2019-12-19 18:15] LABS: Alanine Aminotransferase 26 IU/L (<35); Albumin 4.1 g/dL (3.5-5.0); Albumin Globulin Ratio 1.4 (1.0-2.8); Alkaline Phosphatase 54 U/L (38-126); Aspartate Aminotransferase 33 IU/L (14-36); BUN Creatinine Ratio 15.7 (6-22); Bilirubin Total 0.4 mg/dL (0.2-1.3); Blood Urea Nitrogen 16 mg/dL (7-17); Calcium 8.6 mg/dL (8.4-10.2); Carbon Dioxide 33 mmol/L (22-32); Chloride 96 mmol/L (98-107); Estimated Glomerular Filt Rate 54.6 mL/min (>60); Glucose 106 mg/dL (80-110); HEMOLYSIS 16 (0-50); Potassium 4.3 mmol/L (3.4-5.1); Sodium 132 mmol/L (137-145); Total Protein 7.1 g/dL (6.3-8.2)
== END ==
PROVIDERS: PCP Internal Medicine; Referring Provider Psychiatry & Neurology Neurology; Visit Provider Psychiatry & Neurology Neurology
DX: G50.0 Trigeminal neuralgia (principal)
CPT/HCPCS: 36415; 80053; 85025

== ENCOUNTER → 2020-04-19 14:01 | Outpatient (CLI) | payer OTHER, SELFPAY ==
--- NOTE | 2020-04-19 14:03 | DI.MG.S_ITS ---
BILATERAL DIGITAL SCREENING MAMMOGRAM 3D/2D WITH CAD: 04/19/2020 CLINICAL: Routine screening. Family history of breast cancer. Comparison is made to exams dated: 05/26/2018 mammogram, 05/17/2017 mammogram, 01/23/2016 mammogram, 01/17/2015 mammogram, and 12/13/2013 mammogram - [facility]. The tissue of both breasts is heterogeneously dense. This may lower the sensitivity of mammography. Current study was also evaluated with a Computer Aided Detection (CAD) system. There are possible new grouped punctate calcifications in the left breast posterior depth medial region seen on the craniocaudal view only. No other significant masses, calcifications, or other findings are seen in either breast. IMPRESSION: INCOMPLETE: NEEDS ADDITIONAL IMAGING EVALUATION The possible new grouped punctate calcifications in the left breast are indeterminate. Mediolateral, spot magnification, and additional views are recommended. This exam was interpreted at Station ID: [id number]. NOTE: For mammograms, a report in lay terms will be sent to the patient. Approximately 15% of breast malignancies will not be visualized mammographically. In the management of a palpable breast mass, a negative mammogram must not discourage biopsy of a clinically suspicious lesion. Electronically Signed By: Raymond Min M.D. aty/:04/21/2020 08:22:43 letter sent: Additional Imaging Needed ACR BI-RADS Category 0: Incomplete 3340F
== END ==
PROVIDERS: PCP Internal Medicine; Referring Provider Internal Medicine; Visit Provider Internal Medicine
DX: Z12.31 Encounter for screening mammogram for malignant neoplasm of breast (principal); Z80.3 Family history of malignant neoplasm of breast
CPT/HCPCS: 77063; 77067

== ENCOUNTER → 2020-05-08 13:25 | Outpatient (CLI) | payer OTHER, SELFPAY ==
--- NOTE | 2020-05-08 | DI.MG.S_ITS ---
UNILATERAL LEFT DIGITAL DIAGNOSTIC MAMMOGRAM 3D/2D WITH ADDITIONAL VIEWS: 05/08/2020 CLINICAL: Additional evaluation requested from prior study. Comparison is made to exams dated: 04/19/2020 mammogram, 05/26/2018 mammogram, and 05/17/2017 mammogram - [facility]. The tissue of left breast is heterogeneously dense. This may lower the sensitivity of mammography. There are possible vascular calcifications in the left breast posterior depth medial region seen on the craniocaudal view only. These may correlate with the calcifications seen on screening. A suspicious grouping of calcifications was not able to be found on today's study. No other significant masses or calcifications are seen in the breast. IMPRESSION: PROBABLY BENIGN The calcifications in the left breast are possibly vascular or possibly Gen-view artifact and are probably benign. A follow-up left mammogram in 6 months is recommended to demonstrate stability or resolution. Findings and recommendations were conveyed to the patient at time of exam. This exam was interpreted at Station ID: [id number]. NOTE: For mammograms, a report in lay terms will be sent to the patient. Approximately 15% of breast malignancies will not be visualized mammographically. In the management of a palpable breast mass, a negative mammogram must not discourage biopsy of a clinically suspicious lesion. Electronically Signed By: Lorena marques/:05/08/2020 15:01:00 letter sent: Followup Recommended ACR BI-RADS Category 3: Probably benign 3343F
== END ==
PROVIDERS: PCP Internal Medicine; Referring Provider Internal Medicine; Visit Provider Internal Medicine
DX: R92.8 Other abnormal and inconclusive findings on diagnostic imaging of breast (principal)
CPT/HCPCS: 77065; G0279

== ENCOUNTER → 2020-05-23 15:14 | Outpatient (CLI) | payer OTHER, SELFPAY ==
[2020-05-23 16:11] LABS: Add Manual Diff / Slide Review NO; Basophils Absolute Auto 0 /uL (0-100); Basophils Percent Auto 0.5 % (0-2); Eosinophils Absolute Auto 100 /uL (0-450); Eosinophils Percent Auto 1.3 % (2-4); Hematocrit 35.9 % (36-46); Hemoglobin 12.3 g/dL (12.0-16.0); Lymphocytes Absolute Auto 1300 /uL (1100-4500); Lymphocytes Percent Auto 22.1 % (25-40); Mean Corpuscular HGB Conc 34.3 % (30-36); Mean Corpuscular Hemoglobin 32.6 PG (26-34); Monocytes Absolute Auto 600 /uL (0-900); Monocytes Percent Auto 10.9 % (3-14); Neutrophils Absolute Auto 3800 /uL (1500-7000); Neutrophils Percent Auto 65.2 % (50-75); Platelet Count 241 X10^3/uL (150-400); Red Blood Cell Count 3.78 X10^6/uL (4.0-5.2); Red Cell Distribution Width 13.5 % (11.6-14.8); White Blood Cell Count 5.8 X10^3/uL (4.5-11.0)
[2020-05-23 16:56] LABS: Vitamin D 25 Hydroxy (D3) 74.6 ng/mL (30.0-100.0)
[2020-05-23 17:30] LABS: Folate > 20.0 ng/mL (2.76-20.0); Vitamin B12 > 1000 pg/mL (239-931)
== END ==
PROVIDERS: Psychiatry & Neurology Neurology; PCP Internal Medicine; Referring Provider Psychiatry & Neurology Neurology; Visit Provider Psychiatry & Neurology Neurology
DX: E55.9 Vitamin D deficiency, unspecified (principal)
CPT/HCPCS: 36415; 82306; 82607; 82746; 85025

== ENCOUNTER → 2020-07-09 19:18 | Outpatient (ROUT) | payer OTHER, SELFPAY ==
[2020-07-09 20:24] LABS: BUN Creatinine Ratio 21.6 (6-22); Blood Urea Nitrogen 16 mg/dL (7-17); Carbon Dioxide 30 mmol/L (22-32); Chloride 95 mmol/L (98-107); Cholesterol 190 mg/dL (140-199); Estimated Glomerular Filt Rate > 60.0 mL/min (>60); Glucose 90 mg/dL (80-110); HEMOLYSIS < 15 (0-50); Potassium 4.6 mmol/L (3.4-5.1); Sodium 130 mmol/L (137-145); Triglycerides 109 mg/dL (35-150)
[2020-07-09 20:36] LABS: HDL Cholesterol 133 mg/dL (40-60); LDL Cholesterol Calculated 35 mg/dL (<100)
== END ==
PROVIDERS: PCP Internal Medicine; Visit Provider Internal Medicine
DX: I10 Essential (primary) hypertension (principal)
CPT/HCPCS: 80048; 80061

== ENCOUNTER → 2020-07-31 11:02 | Outpatient (CLI) | payer OTHER, SELFPAY ==
--- NOTE | 2020-07-31 | DI.RAD.S_ITS ---
PROCEDURE: XR FOOT LT MIN 3V INDICATIONS: LEFT FOOT PAIN TECHNIQUE: 3 views of the foot were acquired. COMPARISON: None. FINDINGS: Bones: No acute fracture identified. Diffuse osteopenia is present. There is hallux valgus and mild to moderate 1st MTP osteoarthritis . Diffuse midfoot and hindfoot osteoarthritis Soft tissues: No tibiotalar joint effusion. Achilles tendon appears normal. IMPRESSION: Hallux valgus. 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 on 07/31/2020 at 13:33 Approved by: Gabriel Blanchard M.D. on 07/31/2020 at 13:34
== END ==
PROVIDERS: PCP Internal Medicine; Referring Provider Internal Medicine; Visit Provider Internal Medicine
DX: S90.32XA Contusion of left foot, initial encounter (principal); M20.12 Hallux valgus (acquired), left foot; M19.072 Primary osteoarthritis, left ankle and foot
CPT/HCPCS: 73630

== ENCOUNTER → 2020-08-26 14:13 | Outpatient (CLI) | payer OTHER, SELFPAY | PROVIDERS: PCP Internal Medicine; Referring Provider Internal Medicine; Visit Provider Internal Medicine | DX: M81.0 Age-related osteoporosis without current pathological fracture (principal); Z78.0 Asymptomatic menopausal state; G35 Multiple sclerosis; E07.9 Disorder of thyroid, unspecified; Z90.722 Acquired absence of ovaries, bilateral; Z82.62 Family history of osteoporosis | CPT/HCPCS: 77080 ==

== ENCOUNTER → 2020-09-02 12:10 | Outpatient (CLI) | payer OTHER, SELFPAY ==
--- NOTE | 2020-09-02 | DI.MRI.S_ITS ---
PROCEDURE: MRFOOT LT WO CON INDICATIONS: Contusion of left foot, initial encounter TECHNIQUE: Noncontrast sagittal T1 spin echo and T2 fast spin echo with fat saturation, long-axis T1 spin echo and T2 fast spin echo with fat saturation, short-axis T1 spin echo and T2 fast spin echo with fat saturation through the forefoot. COMPARISON: [facility], CR, XR FOOT LT MIN 3V, 07/31/2020, 11:22. FINDINGS: Image quality: Excellent. Bones and joints: Moderate to severe hallux valgus is seen. There is and acute to subacute appearing oblique fracture through mid to distal 2nd metatarsal shaft. Extensive marrow edema is noted in 2nd and 3rd metatarsal shafts. Linear hypointense signal is also noted traversing 3rd metatarsal head suggestive of a nondisplaced oblique fracture. Cortical irregularity involving 3rd metatarsal base is seen. Osteoarthritic changes are noted in 1st MTP joint and 1st through 5th interphalangeal joints. No other area of marrow abnormal marrow signal. Soft tissues: Extensive soft tissue swelling and edema over dorsum of metatarsal bones are seen. No discrete drainable fluid collection. No gross muscle or tendon signal abnormality is noted. Extensor and flexor tendons are grossly intact without full-thickness rupture. Lisfranc ligament and joint is intact. IMPRESSION: 1. Minimally displaced oblique fracture through mid to distal 2nd metatarsal shaft. Likely nondisplaced fractures involving 3rd metatarsal head and 3rd metatarsal base. 2. Extensive soft tissue edema surrounding 2nd and 3rd metatarsal shaft fracture sites. Dorsal midfoot and forefoot soft tissue edema and swelling. No full-thickness tendon rupture. Lisfranc ligament is intact. 3. Moderate to severe hallux valgus. Mild forefoot joint osteoarthritis. Dictated by: Mumtaz Hutton M.D. on 09/02/2020 at 13:54 Approved by: Mumtaz Hutton M.D. on 09/02/2020 at 14:10
== END ==
PROVIDERS: PCP Internal Medicine; Referring Provider Internal Medicine; Visit Provider Internal Medicine
DX: S90.32XA Contusion of left foot, initial encounter (principal); S92.322A Displaced fracture of second metatarsal bone, left foot, initial encounter for closed fracture; R60.0 Localized edema; M20.12 Hallux valgus (acquired), left foot; M19.072 Primary osteoarthritis, left ankle and foot
CPT/HCPCS: 73718

== ENCOUNTER → 2020-10-20 12:43 | Outpatient (CLI) | payer OTHER, SELFPAY ==
--- NOTE | 2020-10-20 | DI.MG.S_ITS ---
UNILATERAL LEFT DIGITAL DIAGNOSTIC MAMMOGRAM 3D/2D: 10/20/2020 CLINICAL: Short term follow up for the left breast. Comparison is made to exams dated: 05/08/2020 mammogram, 04/19/2020 mammogram, 05/26/2018 mammogram, and 05/17/2017 mammogram - [facility]. The tissue of left breast is heterogeneously dense. This may lower the sensitivity of mammography. There are possible a grouped punctate calcifications in the left breast posterior depth medial region seen on the craniocaudal view only. These are not significantly changed. No other significant masses or calcifications are seen in the breast. IMPRESSION: PROBABLY BENIGN The possible grouped punctate calcifications in the left breast are probably benign. A follow-up mammogram in 6 months is recommended to demonstrate stability. This exam was interpreted at Station ID: [id number]. NOTE: For mammograms, a report in lay terms will be sent to the patient. Approximately 15% of breast malignancies will not be visualized mammographically. In the management of a palpable breast mass, a negative mammogram must not discourage biopsy of a clinically suspicious lesion. Electronically Signed By: Norman portillo/brooklynn:10/20/2020 13:36:53 letter sent: Followup Recommended ACR BI-RADS Category 3: Probably benign 3343F
== END ==
PROVIDERS: PCP Internal Medicine; Referring Provider Internal Medicine; Visit Provider Internal Medicine
DX: R92.8 Other abnormal and inconclusive findings on diagnostic imaging of breast (principal)
CPT/HCPCS: 77065; G0279

== ENCOUNTER 2020-12-04 20:02 | Emergency (ER) | payer OTHER, SELFPAY ==
[2020-12-04 20:39] VITALS: BP 197/114; PULSE 70; RESP 16; TEMP 36.6; O2SAT 100; BMI 23.3
[2020-12-04 21:30] VITALS: BP 179/103; PULSE 72; RESP 18; O2SAT 100
--- NOTE | 2020-12-04 21:47 | ED_ITS ---
HPI - Head Injury General Chief complaint: Head Injury Stated complaint: fall, head injury Time Seen by Provider: 12/04/20 21:34 Source: patient and family Mode of arrival: Ambulatory Limitations: no limitations History of Present Illness HPI Narrative: 64F nonsmoker presents with her for evaluation of a ground level fall resulting in a scalp laceration. She lost her balance and feet got caught up underneath her and she fell backwards striking her head. She suffered a laceration on her occiput but no loss of consciousness. She has full recall of the event. She has had no vomiting and denies any neurologic symptoms such as blurred vision, trouble with speech or other. She is acting at baseline per . Additionally she suffered 2 small skin tears on her wrists. She denies any prodromal symptoms such as dizziness, weakness or lightheadedness. She had no chest pain or shortness of breath. Related Data Home Medications Medication Instructions Recorded Confirmed BORAGE SEED OIL/GAMMA LINOLE 1 sgl PO QDAY #0 12/01/12 01/01/18 (#BORAGE 1000 MG-200 MG) amlodipine 10 mg tablet 5 mg PO QPM #0 12/01/12 10/25/19 clonazepam 0.5 mg tablet 0.25 mg PO QID #0 tab 12/01/12 10/25/19 lisinopril 20 mg tablet 20 mg PO QDAY #0 12/01/12 10/25/19 spironolactone 50 mg tablet 50 mg PO BID #0 tab 12/17/15 10/25/19 carbamazepine 200 mg tablet 200 mg PO QID #0 01/27/17 10/25/19 nortriptyline 25 mg capsule 50 mg PO BID #0 01/27/17 10/25/19 clonidine HCl 0.3 mg tablet #0 06/01/17 01/01/18 calcium carbonate 500 mg calcium 1 tab PO QDAY #0 06/07/17 01/01/18 (1,250 mg) tablet clobetasol 0.05 % topical ointment 1 nuria TOPICAL BID #0 06/07/17 01/01/18 multivitamin (Multiple Vitamins) 1 tab PO QDAY #0 06/07/17 01/01/18 polyethylene glycol 3350 17 gram 17 gm PO PRN PRN #0 06/07/17 01/01/18 oral powder packet (Miralax) vitamin B complex (B 1 tab PO QDAY #0 06/07/17 10/25/19 Complex-Vitamin B12) carvedilol 25 mg tablet 25 mg PO BID 10/25/19 10/25/19 gabapentin 300 mg capsule 300 mg PO TID 10/25/19 10/25/19 methocarbamol 750 mg tablet 750 mg PO 5XD 10/25/19 10/25/19 Previous Rx's Medication Instructions Recorded loperamide 2 mg tablet (Imodium 2 mg PO Q2-4H PRN #30 tab 01/01/18 A-D) omeprazole 20 mg capsule,delayed 20 mg PO DAILY PRN #30 cap 01/01/18 release Allergies Allergy/AdvReac Type Severity Reaction Status Date / Time adhesive [ADHESIVE] Allergy Intermediate RASH Verified 10/25/19 16:20 erythromycin base Allergy Intermediate RASH Verified 01/01/18 16:34 [ERYTHROMYCIN BASE] fluoxetine [From PROZAC] Allergy Intermediate ANXIOUS, Verified 10/25/19 16:20 JITTERY metoprolol [METOPROLOL] Allergy Intermediate RASH Verified 10/25/19 16:20 neomycin Allergy Intermediate RASH Verified 10/25/19 16:20 [From NEOSPORIN ([id number])] polymyxin B Allergy Intermediate RASH Verified 01/01/18 16:34 [From NEOSPORIN ([id number])] sertraline [From ZOLOFT] Allergy Intermediate UPSET Verified 10/25/19 16:20 STOMACH, NO LIBIDO iodine [IODINE] Allergy Mild RASH Verified 10/25/19 16:20 nitrofurantoin Allergy Unknown Gastrointestinal Verified 10/25/19 16:20 [NITROFURANTOIN] Upset codeine [CODEINE] AdvReac Severe STOMACH Verified 10/25/19 16:20 UPSET,VOMITING. venlafaxine [VENLAFAXINE] AdvReac Unknown NO LIBIDO Verified 01/01/18 16:34 Review of Systems Review of Systems Narrative: GENERAL: Denies chills, fatigue, malaise, fever, sweats. HEENT: Denies sinus pain, ear pain, sore throat, difficulty swallowing, dizziness. RESPIRATORY: Denies dyspnea, cough, wheezing, hemoptysis, sputum. CARDIOVASCULAR: Denies chest pain, palpitations, orthopnea, edema, GASTROINTESTINAL: Denies nausea, vomiting, abdominal pain, diarrhea, consti pation, melena. : Denies dysuria, frequency, incontinence, hematuria, urinary retention. MUSCULOSKELETAL: denies weakness, joint pain, or bony pain SKIN: See HPI NEUROLOGIC: Denies weakness, headache, numbness, change in speech, confusion, seizures, incoordination. PSYCHIATRIC: No concerning psychosocial issues. 12 point review of systems is negative except for those stated above Patient History Social History Smoking Status: Never smoker Smoking Status: Never smoker alcohol intake frequency: 0-2 drinks per day Substance Use Type: does not use Exam Narrative Exam Narrative: GEN: AOx3 and in mild distress, GCS 15 HEAD: 2 cm flap laceration on occiput with minimal active bleeding. No evidence of depressed skull fracture NECK: No midline pain, stepoffs, or crepitance. EYES: Pupils are equal, round, and reactive to light and accommodation. No hyphema Extraoccular muscles are intact bilaterally. There is no subconjunctival hemorrhage or exudate. CHEST: Lungs are clear to auscultation bilaterally and free of wheezes, rales, or rhonchi. Heart rate is regular rhythm, there are no murmurs, clicks, rubs, or gallops. There is no chest wall tenderness. ABD: Abdomen is soft and nontender. There is no guarding or rebound. Bowel sounds are normal in all 4 quadrants. There is no mass or organomegaly. EXT: Full painless ROM of all extremities with no loss of sensation or strength. SKIN: Warm, pink, and dry. No erythema or rash Initial Vital Signs Initial Vital Signs: Vital Signs Temperature 97.9 F 12/04/20 20:39 Pulse Rate 70 12/04/20 20:39 Respiratory Rate 16 12/04/20 20:39 Blood Pressure 197/114 H 12/04/20 20:39 Pulse Oximetry 100 12/04/20 20:39 Procedures Laceration Repair Laceration 1: Site: scalp Size (cm): 2 Description: stellate and flap Depth: simple, single layer Local Anesthetic: with epi Amount of anesthesia used (mL): 4 Pre-repair: wound explored Skin layer closed with: lenny Course Orders Ordered: Discontinued Medications Lidocaine/Epinephrine (Lidocaine 1% W/Epi) 1 ml SUBCUT NOW ONE Stop: 12/04/20 21:49 Last Admin: 12/04/20 22:00 Dose: 1 ml Documented by: REBECCA Vital Signs Vital signs: Vital Signs - 8 hr 12/04/20 21:30 Pulse Rate 72 Respiratory Rate 18 Blood Pressure 179/103 H Pulse Oximetry 100 MDM - Head Injury MDM Narrative Medical decision making narrative: Patient with ground level fall and no indication for head CT. Discharge Plan Departure Patient Disposition: Home Clinical Impression: Occipital scalp laceration Qualifiers: Encounter type: initial encounter Qualified Code(s): S01.01XA - Laceration without foreign body of scalp, initial encounter Instructions: DI for Laceration Repair of the Scalp, DI for Closed Head Injury Activity Restrictions/Additional Instructions: Please keep the wound clean and dry to the best of your ability. Please monitor for signs of infection such as redness to the skin or increasing pain. Have the lenny removed by your doctor in about 7 days. If you are unable to get into your doctor, we would be happy to remove the lenny in that same timeframe. Prescriptions: No Action omeprazole 20 mg capsule,delayed release(DR/EC) 20 mg PO DAILY PRN (Reason: stomach upset) Qty: 30 RF: 0 loperamide [Imodium A-D] 2 mg tablet 2 mg PO Q2-4H PRN (Reason: loose stool) Qty: 30 RF: 0 amlodipine 10 MG tablet 5 mg PO QPM Qty: 0 RF: 0 clonazepam 0.5 MG tablet 0.25 mg PO QID Qty: 0 RF: 0 lisinopril 20 MG tablet 20 mg PO QDAY Qty: 0 RF: 0 BORAGE SEED OIL/GAMMA LINOLE (#BORAGE 1000 MG-200 MG) 1 sgl PO QDAY Qty: 0 RF: 0 spironolactone 50 MG tablet 50 mg PO BID Qty: 0 RF: 0 carbamazepine 200 MG tablet 200 mg PO QID Qty: 0 RF: 0 nortriptyline 25 MG capsule 50 mg PO BID Qty: 0 RF: 0 clonidine HCl 0.3 MG tablet Qty: 0 RF: 0 calcium carbonate 500 MG tablet 1 tab PO QDAY Qty: 0 RF: 0 clobetasol 0.05 % ointment 1 nuria Topical BID Qty: 0 RF: 0 polyethylene glycol 3350 [Miralax] 17 GM powder in packet 17 gm PO PRN PRNQty: 0 RF: 0 multivitamin [Multiple Vitamins] 1 EACH tablet 1 tab PO QDAY Qty: 0 RF: 0 vitamin B complex [B Complex-Vitamin B12] 1 EACH tablet 1 tab PO QDAY Qty: 0 RF: 0 carvedilol 25 mg Tablet 25 mg PO BID RF: 0 methocarbamol 750 mg Tablet 750 mg PO 5XD RF: 0 gabapentin 300 mg Capsule 300 mg PO TID RF: 0 Referrals: Brian Willams MD [Primary Care Provider] -
[2020-12-04] MEDS: LIDOCAINE 1% W/EPI 1 ML SUBCUT (22:00)
== END 2020-12-04 22:10 | disposition home or self-care (01) ==
PROVIDERS: Emergency Provider Emergency Medicine; PCP Internal Medicine
DX: S01.01XA Laceration without foreign body of scalp, initial encounter (principal); W19.XXXA Unspecified fall, initial encounter
CPT/HCPCS: 12001; 99281; 99283

== ENCOUNTER 2020-12-12 13:30 | Emergency (ER) | payer OTHER, SELFPAY ==
[2020-12-12 13:50] VITALS: BP 154/78; PULSE 69; RESP 14; TEMP 36.6; O2SAT 100; BMI 21.6
--- NOTE | 2020-12-12 14:07 | ED.RECABL ---
HPI - Recheck/Abnormal Lab/Rx <KAROL VoP - Last Filed: 12/12/20 16:37> General Chief Complaint: Recheck/Abnormal Lab/Rx Stated Complaint: Get stitches out Time Seen by Provider: 12/12/20 14:07 Source: patient Mode of arrival: Ambulatory Limitations: no limitations History of Present Illness HPI narrative: 64-year-old female presents to the ED for staple removal. She had her lenny placed to the occiput of her scalp on 12/04/2020. She reports that she has been putting ointment on it and that there have been no healing concerns. Related Data Home Medications Medication Instructions Recorded Confirmed BORAGE SEED OIL/GAMMA LINOLE 1 sgl PO QDAY #0 12/01/12 01/01/18 (#BORAGE 1000 MG-200 MG) amlodipine 10 mg tablet 5 mg PO QPM #0 12/01/12 10/25/19 clonazepam 0.5 mg tablet 0.25 mg PO QID #0 tab 12/01/12 10/25/19 lisinopril 20 mg tablet 20 mg PO QDAY #0 12/01/12 10/25/19 spironolactone 50 mg tablet 50 mg PO BID #0 tab 12/17/15 10/25/19 carbamazepine 200 mg tablet 200 mg PO QID #0 01/27/17 10/25/19 nortriptyline 25 mg capsule 50 mg PO BID #0 01/27/17 10/25/19 clonidine HCl 0.3 mg tablet #0 06/01/17 01/01/18 calcium carbonate 500 mg calcium 1 tab PO QDAY #0 06/07/17 01/01/18 (1,250 mg) tablet clobetasol 0.05 % topical ointment 1 nuria TOPICAL BID #0 06/07/17 01/01/18 multivitamin (Multiple Vitamins) 1 tab PO QDAY #0 06/07/17 01/01/18 polyethylene glycol 3350 17 gram 17 gm PO PRN PRN #0 06/07/17 01/01/18 oral powder packet (Miralax) vitamin B complex (B 1 tab PO QDAY #0 06/07/17 10/25/19 Complex-Vitamin B12) carvedilol 25 mg tablet 25 mg PO BID 10/25/19 10/25/19 gabapentin 300 mg capsule 300 mg PO TID 10/25/19 10/25/19 methocarbamol 750 mg tablet 750 mg PO 5XD 10/25/19 10/25/19 Previous Rx's Medication Instructions Recorded loperamide 2 mg tablet (Imodium 2 mg PO Q2-4H PRN #30 tab 01/01/18 A-D) omeprazole 20 mg capsule,delayed 20 mg PO DAILY PRN #30 cap 01/01/18 release Allergies Allergy/AdvReac Type Severity Reaction Status Date / Time adhesive [ADHESIVE] Allergy Intermediate RASH Verified 12/12/20 13:50 erythromycin base Allergy Intermediate RASH Verified 12/12/20 13:50 [ERYTHROMYCIN BASE] fluoxetine [From PROZAC] Allergy Intermediate ANXIOUS, Verified 12/12/20 13:50 JITTERY metoprolol [METOPROLOL] Allergy Intermediate RASH Verified 12/12/20 13:50 neomycin Allergy Intermediate RASH Verified 12/12/20 13:50 [From NEOSPORIN ([id number])] polymyxin B Allergy Intermediate RASH Verified 12/12/20 13:50 [From NEOSPORIN ([id number])] sertraline [From ZOLOFT] Allergy Intermediate UPSET Verified 12/12/20 13:50 STOMACH, NO LIBIDO iodine [IODINE] Allergy Mild RASH Verified 12/12/20 13:50 nitrofurantoin Allergy Unknown Gastrointestinal Verified 12/12/20 13:50 [NITROFURANTOIN] Upset codeine [CODEINE] AdvReac Severe STOMACH Verified 12/12/20 13:50 UPSET,VOMITING. venlafaxine [VENLAFAXINE] AdvReac Unknown NO LIBIDO Verified 12/12/20 13:50 Review of Systems <EDEL Vo - Last Filed: 12/12/20 16:37> Review of Systems Narrative: General: denies fever, chills Head/Neck: denies headache, neck pain Eyes: denies visual changes, eye pain Cardio: denies chest pain, palpitations Respiratory: denies shortness of breath, cough GI: denies abdominal pain, nausea, vomiting, or diarrhea MSK: denies joint pain, muscle weakness Skin: denies rash, itching Neuro: denies numbness, tingling Patient History <EDEL Vo - Last Filed: 12/12/20 16:37> Social History Smoking Status: Never smoker Smoking Status: Never smoker alcohol intake frequency: 0-2 drinks per day Substance Use Type: does not use Exam <EDEL Vo - Last Filed: 12/12/20 16:37> Narrative Exam Narrative: Exam Narrative:?GEN: AOx3 and in mild distress, GCS 15 HEAD:? 2 cm flap laceration on occiput with minimal active bleeding.? No evidence of depressed skull fracture NECK: No midline pain, stepoffs, or crepitance. EYES: Pupils are equal, round, and reactive to light and accommodation.? No hyphema Extraoccular muscles are intact bilaterally. There is no subconjunctival hemorrhage or exudate. CHEST: Lungs are clear to auscultation bilaterally and free of wheezes, rales, or rhonchi. Heart rate is regular rhythm, there are no murmurs, clicks, rubs, or gallops. There is no chest wall tenderness. ABD: Abdomen is soft and nontender.? There is no guarding or rebound. Bowel sounds are normal in all 4 quadrants. There is no mass or organomegaly. EXT: Full painless ROM of all extremities with no loss of sensation or strength. SKIN: Warm, pink, and dry. No erythema or rash Initial Vital Signs Initial Vital Signs: Vital Signs Temperature 97.9 F 12/12/20 13:50 Pulse Rate 69 12/12/20 13:50 Respiratory Rate 14 12/12/20 13:50 Blood Pressure 154/78 H 12/12/20 13:50 Pulse Oximetry 100 12/12/20 13:50 <Maggie Mooney DO - Last Filed: 12/13/20 07:58> Initial Vital Signs Initial Vital Signs: Vital Signs Temperature 97.9 F 12/12/20 13:50 Pulse Rate 69 12/12/20 13:50 Respiratory Rate 14 12/12/20 13:50 Blood Pressure 154/78 H 12/12/20 13:50 Pulse Oximetry 100 12/12/20 13:50 Course <EDEL Vo - Last Filed: 12/12/20 16:37> Vital Signs Vital signs: Vital Signs - 8 hr 12/12/20 13:50 Temperature 97.9 F Pulse Rate 69 Respiratory Rate 14 Blood Pressure 154/78 H Pulse Oximetry 100 <Maggie Mooney DO - Last Filed: 12/13/20 07:58> Vital Signs Vital signs: Vital Signs - 8 hr 12/12/20 13:50 Temperature 97.9 F Pulse Rate 69 Respiratory Rate 14 Blood Pressure 154/78 H Pulse Oximetry 100 MDM - Recheck/Abnormal Lab/Rx <EDEL Vo - Last Filed: 12/12/20 16:37> MDM Narrative Medical decision making narrative: 64-year-old female presents to the ED for staple removal of the 6 lenny in her parietal scalp from 12/04/2020. There are no signs of infection, had the nurse remove 6 lenny without incident. Patient understands to watch for signs of infection and to return to the emergency department for new or worsening symptoms. Patient is appropriate and amenable to discharge home. Vital signs are stable on repeat examination is unremarkable. Patient has been informed of results. Patient has been given strict return to ER precautions for any new or worsening symptoms. Patient understands to follow up closely with outpatient providers as instructed. Patient understands plan and agrees to discharge home. All questions and concerns answered at this time. Discharge Plan Departure Patient Disposition: Home Clinical Impression: Encounter for removal of lenny, Hyponatremia Activity Restrictions/Additional Instructions: You had your lenny removed today without incident. Please watch for signs of infection and return to the emergency department for new or worsening symptoms. *What to do: *Please continue to take your regular medications as directed. [ ] New medication prescriptions sent to your pharmacy: [ ] [ ] New medication written as a paper prescription [x ] No new medications given *Please follow up with your primary care provider in 2-3 days, call for an appointment. Let them know you were seen in the Emergency Department and that we ask that you be seen in follow up. We will electronically transmit a record of today's note if your PCP is in our system *If you do not have a primary care provider please contact the [facility] Resource line at [phone]. They will ask some questions about your medical history and help get you set up with a doctor in the community. *Return to Emergency Department if you should have any new, worsening or concerning symptoms, such as [fever greater than 101F, chills, worsening pain, persistent vomiting or other bothersome symptoms] Prescriptions: No Action omeprazole 20 mg capsule,delayed release(DR/EC) 20 mg PO DAILY PRN (Reason: stomach upset) Qty: 30 RF: 0 loperamide [Imodium A-D] 2 mg tablet 2 mg PO Q2-4H PRN (Reason: loose stool) Qty: 30 RF: 0 amlodipine 10 MG tablet 5 mg PO QPM Qty: 0 RF: 0 clonazepam 0.5 MG tablet 0.25 mg PO QID Qty: 0 RF: 0 lisinopril 20 MG tablet 20 mg PO QDAY Qty: 0 RF: 0 BORAGE SEED OIL/GAMMA LINOLE (#BORAGE 1000 MG-200 MG) 1 sgl PO QDAY Qty: 0 RF: 0 spironolactone 50 MG tablet 50 mg PO BID Qty: 0 RF: 0 carbamazepine 200 MG tablet 200 mg PO QID Qty: 0 RF: 0 nortriptyline 25 MG capsule 50 mg PO BID Qty: 0 RF: 0 clonidine HCl 0.3 MG tablet Qty: 0 RF: 0 calcium carbonate 500 MG tablet 1 tab PO QDAY Qty: 0 RF: 0 clobetasol 0.05 % ointment 1 nuria Topical BID Qty: 0 RF: 0 polyethylene glycol 3350 [Miralax] 17 GM powder in packet 17 gm PO PRN PRNQty: 0 RF: 0 multivitamin [Multiple Vitamins] 1 EACH tablet 1 tab PO QDAY Qty: 0 RF: 0 vitamin B complex [B Complex-Vitamin B12] 1 EACH tablet 1 tab PO QDAY Qty: 0 RF: 0 carvedilol 25 mg Tablet 25 mg PO BID RF: 0 methocarbamol 750 mg Tablet 750 mg PO 5XD RF: 0 gabapentin 300 mg Capsule 300 mg PO TID RF: 0 Referrals: Brian Willams MD [Primary Care Provider] - <Maggie Mooney DO - Last Filed: 12/13/20 07:58> Cosign ED Attending Jonoature Attestation: I was immediately available in the department for consultation. Documentation has been reviewed. I agree with assessment and plan.
== END 2020-12-12 14:07 | disposition home or self-care (01) ==
PROVIDERS: Emergency Provider Nurse Practitioner Critical Care Medicine; PCP Internal Medicine
DX: Z48.02 Encounter for removal of sutures (principal); E87.1 Hypo-osmolality and hyponatremia
CPT/HCPCS: 99281

== ENCOUNTER 2020-12-19 19:56 | Observation (INO) | payer OTHER, SELFPAY ==
[2020-12-19] VITALS (34 sets, daily range): BP systolic 145–199; BP diastolic 87–115; PULSE 67–85; RESP 7–67; TEMP 36.1–36.6; O2SAT 95–100
--- NOTE | 2020-12-19 20:09 | DI.RAD.S_ITS ---
PROCEDURE: XR CHEST 1V INDICATIONS: chest pain TECHNIQUE: One view of the chest was acquired. COMPARISON: [facility], , CHEST 1 VIEW, 03/14/2016, 23:42. FINDINGS: Surgical changes and devices: None. Lungs and pleura: Lungs are clear. No pleural effusions or pneumothorax. Mediastinum: Mediastinal contours appear normal. Heart size is normal. Bones and chest wall: No suspicious bony lesions. Overlying soft tissues appear unremarkable. IMPRESSION: No acute process. Dictated by: Guillermo Villela M.D. on 12/19/2020 at 20:51 Approved by: Guillermo Villela M.D. on 12/19/2020 at 20:52
[2020-12-19] MEDS: ASPIRIN 81 MG CHEW TAB 324 MG PO (20:24)
[2020-12-19] MEDS: NITROGLYCERIN 0.4 MG SL TAB SL ×2 (20:24→20:33)
[2020-12-19 20:40] LABS: Alanine Aminotransferase 32 IU/L (<35); Albumin 4.5 g/dL (3.5-5.0); Albumin Globulin Ratio 1.5 (1.0-2.8); Alkaline Phosphatase 77 U/L (38-126); Aspartate Aminotransferase 38 IU/L (14-36); BUN Creatinine Ratio 28.3 (6-22); Bilirubin Total 0.4 mg/dL (0.2-1.3); Blood Urea Nitrogen 15 mg/dL (7-17); Calcium 9.4 mg/dL (8.4-10.2); Carbon Dioxide 32 mmol/L (22-32); Chloride 94 mmol/L (98-107); Estimated Glomerular Filt Rate > 60.0 mL/min (>60); Glucose 92 mg/dL (80-110); Lipase 150 U/L (23-300); Magnesium 1.7 mg/dL (1.6-2.3); Potassium 4.2 mmol/L (3.4-5.1); Sodium 132 mmol/L (137-145); Total Protein 7.5 g/dL (6.3-8.2)
[2020-12-19 20:41] LABS: Creatine Kinase 102 U/L (30-135); HEMOLYSIS 22 (0-50)
[2020-12-19 20:52] LABS: Add Manual Diff / Slide Review NO; Basophils Absolute Auto 0 /uL (0-100); Basophils Percent Auto 0.8 % (0-2); Eosinophils Absolute Auto 100 /uL (0-450); Eosinophils Percent Auto 1.1 % (2-4); Hematocrit 37.6 % (36-46); Hemoglobin 12.8 g/dL (12.0-16.0); Lymphocytes Absolute Auto 1400 /uL (1100-4500); Lymphocytes Percent Auto 27.8 % (25-40); Mean Corpuscular HGB Conc 34.1 % (30-36); Mean Corpuscular Hemoglobin 32.6 PG (26-34); Mean Corpuscular Volume 95.4 fL (80-100); Monocytes Absolute Auto 600 /uL (0-900); Monocytes Percent Auto 10.8 % (3-14); Neutrophils Absolute Auto 3100 /uL (1500-7000); Neutrophils Percent Auto 59.5 % (50-75); Platelet Count 251 X10^3/uL (150-400); Red Blood Cell Count 3.94 X10^6/uL (4.0-5.2); Red Cell Distribution Width 13.6 % (11.6-14.8); Troponin I < 0.012 ng/mL (0.01-0.034); White Blood Cell Count 5.2 X10^3/uL (4.5-11.0)
[2020-12-19 20:57] LABS: CKMB % Relative Index 0.2 % (1.5-5.0); Creatine Kinase MB < 0.22 ng/mL (<2.37)
[2020-12-19 21:57] LABS: COVID19 - ADMIT (NP swab/PCR) Negative (Negative)
--- NOTE | 2020-12-19 22:39 | DI.CT.S_ITS ---
PROCEDURE: CT HEAD/BRAIN WO CON INDICATIONS: fall/laceration/headache TECHNIQUE: Noncontrast 4.5 mm thick angled axial sections acquired from the foramen magnum to the vertex, with coronal and sagittal reformats. For radiation dose reduction, the following was used: automated exposure control, adjustment of mA and/or kV according to patient size. COMPARISON: [facility] , MR, MS BRAIN W & W/O CONT, 01/20/2010, 11:36. [facility] , MR, MS BRAIN W & W/O CONT, 01/29/2011, 14:39. [facility], CT, HEAD WITHOUT CONTRAST, 01/27/2017, 4:05. FINDINGS: Image quality: Excellent. CSF spaces: Basal cisterns are patent. No extra-axial fluid collections. The ventricles are symmetric in size and shape. Brain: No intracranial bleeds or masses. There is cerebral volume loss for age, with resultant ventricular and sulcal prominence. There are periventricular and deep white matter chronic small vessel ischemic changes. There is intracranial internal carotid artery atherosclerosis. Skull and face: Calvarium and visualized facial bones appear intact, without suspicious lesions. Old right retrosigmoid craniotomy noted. Sinuses: Visualized sinuses and mastoids are clear. IMPRESSION: Atrophy and chronic ischemic change without acute hemorrhage or mass effect. Old right retrosigmoid craniotomy Approved by: Gomez Linda M.D. on 12/19/2020 at 22:39
--- NOTE | 2020-12-19 22:39 | ED.CHESTPAIN ---
HPI - Chest Pain General Chief Complaint: Chest Pain Stated Complaint: HIGH BLOOD PRESSURE Time Seen by Provider: 12/19/20 22:10 Source: patient Mode of arrival: Ambulatory Limitations: no limitations History of Present Illness HPI narrative: Patient here with . Complains onset of sudden left-sided chest pain nonradiating at 6:00 p.m. tonight. Noticed high blood pressure at doctor's office yesterday. Is taking her blood pressure medication. No nausea sweating dyspnea. Non radiating chest pain. Relieved with nitro here. Aspirin given here. No prior history of stress test or echocardiogram or heart catheterizations. Had recent fall to the head. Wishram removed a week ago. Continues to have headache. No CT of head was done for her injury. Related Data Home Medications Medication Instructions Recorded Confirmed amlodipine 10 mg tablet 5 mg PO QPM #0 12/01/12 12/19/20 clonazepam 0.5 mg tablet 0.25 mg PO QID #0 tab 12/01/12 12/20/20 lisinopril 20 mg tablet 20 mg PO QDAY #0 12/01/12 12/20/20 spironolactone 50 mg tablet 50 mg PO BID #0 tab 12/17/15 12/20/20 carbamazepine 200 mg tablet 200 mg PO QID #0 01/27/17 12/20/20 nortriptyline 25 mg capsule 50 mg PO BID #0 01/27/17 12/20/20 polyethylene glycol 3350 17 gram 17 gm PO PRN PRN #0 06/07/17 12/20/20 oral powder packet (Miralax) vitamin B complex (B 1 tab PO QDAY #0 06/07/17 12/20/20 Complex-Vitamin B12) carvedilol 25 mg tablet 25 mg PO BID 10/25/19 12/20/20 gabapentin 300 mg capsule 300 mg PO TID 10/25/19 12/20/20 methocarbamol 750 mg tablet 750 mg PO 5XD 10/25/19 12/20/20 Allergies Allergy/AdvReac Type Severity Reaction Status Date / Time adhesive [ADHESIVE] Allergy Intermediate RASH Verified 12/19/20 20:20 erythromycin base Allergy Intermediate RASH Verified 12/19/20 20:20 [ERYTHROMYCIN BASE] fluoxetine [From PROZAC] Allergy Intermediate ANXIOUS, Verified 12/19/20 20:20 JITTERY metoprolol [METOPROLOL] Allergy Intermediate RASH Verified 12/19/20 20:20 neomycin Allergy Intermediate RASH Verified 12/19/20 20:20 [From NEOSPORIN ([id number])] polymyxin B Allergy Intermediate RASH Verified 12/19/20 20:20 [From NEOSPORIN ([id number])] sertraline [From ZOLOFT] Allergy Intermediate UPSET Verified 12/19/20 20:20 STOMACH, NO LIBIDO iodine [IODINE] Allergy Mild RASH Verified 12/19/20 20:20 nitrofurantoin Allergy Unknown Gastrointestinal Verified 12/19/20 20:20 [NITROFURANTOIN] Upset codeine [CODEINE] AdvReac Severe STOMACH Verified 12/19/20 20:20 UPSET,VOMITING. Sulfa (Sulfonamide AdvReac Intermediate Diarrhea Verified 12/19/20 20:20 Antibiotics) venlafaxine [VENLAFAXINE] AdvReac Unknown NO LIBIDO Verified 12/12/20 13:50 Review of Systems Review of Systems Narrative: GENERAL: Denies chills, fatigue, malaise, fever, sweats. HEENT: Denies sinus pain, ear pain, sore throat RESPIRATORY: Denies dyspnea, cough CARDIOVASCULAR: Positive for chest pain, palpitations GASTROINTESTINAL: Denies nausea, vomiting, abdominal pain : Denies dysuria, frequency, hematuria MUSCULOSKELETAL: denies muscle or bony pain SKIN: Denies rash, skin lesions NEUROLOGIC: Denies weakness, numbness ROS Unobtainable: All systems reviewed & are unremarkable except as noted in HPI and below Patient History Medical History (Updated 12/20/20 @ 05:18 by OTILIA Brennan-ROBERT) Acquired hypothyroidism Chronic hyponatremia Essential hypertension History of shingles Lung mass Multiple sclerosis, primary progressive Primary aldosteronism Psoriasis Raynauds disease Tremor due to disorder of central nervous system Trigeminal neuralgia Surgical History (Updated 12/20/20 @ 05:18 by OTILIA Brennan-ROBERT) History of cervical discectomy History of craniotomy History of total abdominal hysterectomy Family History Mother Cancer Hypertension Father Hypertension Social History Smoking Status: Never smoker Smoking Status: Never smoker alcohol intake frequency: 0-2 drinks per day Substance Use Type: does not use Exam Narrative Exam Narrative: GENERAL: in no distress, not toxic not dyspneic HEAD: Normocephalic. EYES: Pupils equal round No scleral icterus. No injection no discharge ENT: Mucous membranes moist. NECK: Trachea midline. CARDIOVASCULAR: Regular rate and rhythm without murmurs RESPIRATORY: Clear to auscultation. Breath sounds equal bilaterally. No wheezes, rales, or rhonchi. GASTROINTESTINAL: Abdomen soft, non-tender EXTREMITIES: No gross deformities. BACK: No flank tenderness. NEURO: AOx4. SKIN: Warm and dry PSYCH: Not anxious, is cooperative Initial Vital Signs Initial Vital Signs: Vital Signs Temperature 97.0 F L 12/19/20 20:04 Pulse Rate 78 12/19/20 20:04 Respiratory Rate 14 12/19/20 20:04 Blood Pressure 190/107 H 12/19/20 20:04 Pulse Oximetry 99 12/19/20 20:04 Course Course Course Narrative: No new issues during course of stay Decision to Admit Date: 12/19/20 Decision to Admit time: 22:44 Orders Ordered: ED Orders 12/19/20 22:15 Troponin I Stat 12/19/20 22:39 CT head/brain wo con Stat 12/19/20 23:20 Education, smoking cessation ONGOING 12/19/20 23:24 EC echo doppler complete Urgent 12/19/20 23:30 Troponin I Q8H 12/20/20 06:15 Basic Metabolic Panel Routine Lipid Panel Routine Partial Thromboplastin Time Routine Prothrombin Time INR Routine Acetaminophen (Acetaminophen 325 Mg Tablet) 650 mg PO Q6HR PRN PRN Reason: Fever/Mild Pain (1-3) Al Hydrox/Mg Hydrox/Simethicone (Mag Hydrox/Alum/Simeth 30 Ml Udc) 30 ml PO Q6HR PRN PRN Reason: Dyspepsia Amlodipine Besylate (Amlodipine 5 Mg Tablet) 5 mg PO QPM [facility] Aspirin (Aspirin Ec 81 Mg Tablet) 81 mg PO DAILY [facility] Carbamazepine (Carbamazepine 200 Mg Tablet) 200 mg PO QID [facility] Carvedilol (Carvedilol 12.5 Mg Tablet) 25 mg PO BID [facility] Enoxaparin Sodium (Enoxaparin 40 Mg/0.4 Ml Syringe) 40 mg SUBCUT DAILY [facility] Gabapentin (Gabapentin 300 Mg Capsule) 300 mg PO TID [facility] Lisinopril (Lisinopril 20 Mg Tablet) 20 mg PO DAILY [facility] Magnesium Hydroxide (Magnesium Hydroxide 30 Ml Udc) 30 ml PO DAILY PRN PRN Reason: Constipation Methocarbamol (Methocarbamol 500 Mg Tablet) 750 mg PO 5XD [facility] Metoprolol Tartrate (Metoprolol Tartrate 5 Mg/5 Ml Inj) 5 mg IV Q2HR PRN PRN Reason: HTN SBP>180/DBP >100 Morphine Sulfate (Morphine 2 Mg/Ml Inj) 2 mg IV Q5MIN PRN PRN Reason: Chest Pain Naloxone HCl (Naloxone 0.4 Mg/Ml Vial) 0.2 mg IV Q2MIN PRN PRN Reason: Opiate Reversal Nitroglycerin (Nitroglycerin 0.4 Mg Sl Tab) 0.4 mg SL [id number] PRN PRN Reason: Chest Pain Nortriptyline HCl (Nortriptyline Hcl 25 Mg Capsule) 50 mg PO BID [facility] Ondansetron HCl (Ondansetron 4 Mg/2 Ml Inj) 4 mg IV Q8HR PRN PRN Reason: Nausea And Vomiting Spironolactone (Spironolactone 25 Mg Tablet) 50 mg PO BID [facility] Discontinued Medications Aspirin (Aspirin 81 Mg Chew Tab) 324 mg PO NOW ONE Stop: 12/19/20 20:10 Last Admin: 12/19/20 20:24 Dose: 324 mg Documented by: JAMES Nitroglycerin (Nitroglycerin 0.4 Mg Sl Tab) 0.4 mg SL [id number] PRN PRN Reason: Chest Pain Last Admin: 12/19/20 20:33 Dose: 0.4 mg Documented by: Admin: 12/19/20 20:24 Dose: 0.4 mg Documented by: JAMES Reevaluation(s) Reevaluation #1: With patient and . Chest pain-free at this time. Aspirin given. Agrees for admit. Time: 10:20 Consultations Consultation #1: Spoke with Cardiology, Dr. Martinez, recommends admit and echocardiogram in the morning Time: 22:44 Consultation #2: Spoke with hospitalist, Vanessa, who will admit Time: 23:01 Vital Signs Vital signs: Vital Signs - 8 hr 12/19/20 23:11 12/19/20 23:20 12/19/20 23:30 Temperature 97.8 F Pulse Rate 71 70 68 Respiratory Rate 18 13 Blood Pressure 161/94 H Pulse Oximetry 96 100 98 MDM - Chest Pain Differential Diagnosis Differential diagnosis: Likely fracture of rib, pneumothorax, stable angina, unstable angina pectoris, atypical chest pain, st elevation myocardial infarction and chest pain Lab Data Result diagrams: 12/19/20 20:15 12/19/20 20:15 Labs: Lab Results 12/19/20 12/19/20 12/19/20 Range/Units 20:15 20:15 20:15 WBC 5.2 (4.5-11.0) X10^3/uL RBC 3.94 L (4.0-5.2) X10^6/uL Hgb 12.8 (12.0-16.0) g/dL Hct 37.6 (36-46) % MCV 95.4 (80-100) fL MCH 32.6 (26-34) PG MCHC 34.1 (30-36) % RDW 13.6 (11.6-14.8) % Plt Count 251 (150-400) X10^3/uL Neut % (Auto) 59.5 (50-75) % Lymph % (Auto) 27.8 (25-40) % Cecil % (Auto) 10.8 (3-14) % Eos % (Auto) 1.1 L (2-4) % Baso % (Auto) 0.8 (0-2) % Neut # (Auto) 3100 (6700-3036) /uL Lymph # (Auto) 1400 (4889-4894) /uL Cecil # (Auto) 600 (0-900) /uL Eos # (Auto) 100 (0-450) /uL Baso # (Auto) 0 (0-100) /uL Sodium 132 L (137-145) mmol/L Potassium 4.2 (3.4-5.1) mmol/L Chloride 94 L (98-107) mmol/L Carbon Dioxide 32 (22-32) mmol/L BUN 15 (7-17) mg/dL Creatinine 0.53 (0.52-1.04) mg/dL Estimated GFR > 60.0 (>60) mL/min BUN/Creatinine Ratio 28.3 H (6-22) Glucose 92 (80-110) mg/dL Calcium 9.4 (8.4-10.2) mg/dL Magnesium 1.7 (1.6-2.3) mg/dL Total Bilirubin 0.4 (0.2-1.3) mg/dL AST 38 H (14-36) IU/L ALT 32 (<35) IU/L Alkaline Phosphatase 77 (38-126) U/L Total Creatine Kinase 102 (30-135) U/L CK-MB (CK-2) < 0.22 (<2.37) ng/mL CK-MB (CK-2) Rel Index 0.2 L (1.5-5.0) % Troponin I < 0.012 (0.01-0.034) ng/mL NT-Pro-B Natriuret Pep 19 (<125) pg/mL Total Protein 7.5 (6.3-8.2) g/dL Albumin 4.5 (3.5-5.0) g/dL Globulin 3.0 (1.7-4.1) g/dL Albumin/Globulin Ratio 1.5 (1.0-2.8) Lipase 150 (23-300) U/L SARS-CoV-2 (PCR) (Negative) 12/19/20 12/19/20 Range/Units 20:45 22:15 WBC (4.5-11.0) X10^3/uL RBC (4.0-5.2) X10^6/uL Hgb (12.0-16.0) g/dL Hct (36-46) % MCV (80-100) fL MCH (26-34) PG MCHC (30-36) % RDW (11.6-14.8) % Plt Count (150-400) X10^3/uL Neut % (Auto) (50-75) % Lymph % (Auto) (25-40) % Cecil % (Auto) (3-14) % Eos % (Auto) (2-4) % Baso % (Auto) (0-2) % Neut # (Auto) (1276-8227) /uL Lymph # (Auto) (8408-1982) /uL Cecil # (Auto) (0-900) /uL Eos # (Auto) (0-450) /uL Baso # (Auto) (0-100) /uL Sodium (137-145) mmol/L Potassium (3.4-5.1) mmol/L Chloride (98-107) mmol/L Carbon Dioxide (22-32) mmol/L BUN (7-17) mg/dL Creatinine (0.52-1.04) mg/dL Estimated GFR (>60) mL/min BUN/Creatinine Ratio (6-22) Glucose (80-110) mg/dL Calcium (8.4-10.2) mg/dL Magnesium (1.6-2.3) mg/dL Total Bilirubin (0.2-1.3) mg/dL AST (14-36) IU/L ALT (<35) IU/L Alkaline Phosphatase (38-126) U/L Total Creatine Kinase (30-135) U/L CK-MB (CK-2) (<2.37) ng/mL CK-MB (CK-2) Rel Index (1.5-5.0) % Troponin I < 0.012 (0.01-0.034) ng/mL NT-Pro-B Natriuret Pep (<125) pg/mL Total Protein (6.3-8.2) g/dL Albumin (3.5-5.0) g/dL Globulin (1.7-4.1) g/dL Albumin/Globulin Ratio (1.0-2.8) Lipase (23-300) U/L SARS-CoV-2 (PCR) Negative (Negative) Imaging Data Chest x-ray: Radiologist's Impression: [address] [address] XRay Report Signed Patient: Enedina Tuttle MR#: [id number] : 1955 Acct:[id number] Age/Sex: 64 / F Date of Service: 12/19/20 Loc: ED Accession Number: [id number] ?? Procedure: XR chest 1V Ordering Provider: Cayetano Mejia MD PROCEDURE:? XR CHEST 1V ? INDICATIONS:? chest pain ? TECHNIQUE:? One view of the chest was acquired.? ? COMPARISON:? [facility] , CHEST 1 VIEW, 03/14/2016, 23:42. ? FINDINGS:? ? Surgical changes and devices:? None.? ? Lungs and pleura:? Lungs are clear.? No pleural effusions or pneumothorax.? ? Mediastinum:? Mediastinal contours appear normal.? Heart size is normal.? ? Bones and chest wall:? No suspicious bony lesions.? Overlying soft tissues appear unremarkable.? ? IMPRESSION:? No acute process. ? ? Dictated by: Guillermo Villela M.D. on 12/19/2020 at 20:51 ? ? Approved by: Guillermo Villela M.D. on 12/19/2020 at 20:52 ? CT scan - head: Radiologist's Impression: [address] [address] [address] Scan Report Signed Patient: Enedina Tuttle MR#: [id number] : 1955 Acct:[id number] Age/Sex: 64 / F Date of Service: 12/19/20 Loc: ED Accession Number: [id number] ?? Procedure: CT head/brain wo con Ordering Provider: Cayetano Mejia MD PROCEDURE:? CT HEAD/BRAIN WO CON ? INDICATIONS:? fall/laceration/headache ? TECHNIQUE:? Noncontrast 4.5 mm thick angled axial sections acquired from the foramen magnum to the vertex, with coronal and sagittal reformats.? For radiation dose reduction, the following was used:? automated exposure control, adjustment of mA and/or kV according to patient size.? ? COMPARISON:? [facility] , MR, MS BRAIN W & W/O CONT, 01/20/2010, 11:36. ?[facility] , MR, MS BRAIN W & W/O CONT, 01/29/2011, 14:39.? [facility], CT, HEAD WITHOUT CONTRAST, 01/27/2017, 4:05. ? FINDINGS:? Image quality:? Excellent.? ? CSF spaces:? Basal cisterns are patent.? No extra-axial fluid collections.? The ventricles are symmetric in size and shape.? ? Brain:? No intracranial bleeds or masses.? There is cerebral volume loss for age, with resultant ventricular and sulcal prominence.? There are periventricular and deep white matter chronic small vessel ischemic changes.? There is intracranial internal carotid artery atherosclerosis.? ? Skull and face:? Calvarium and visualized facial bones appear intact, without suspicious lesions.? Old right retrosigmoid craniotomy noted. ? Sinuses:? Visualized sinuses and mastoids are clear.? ? IMPRESSION:? ? Atrophy and chronic ischemic change without acute hemorrhage or mass effect. Old right retrosigmoid craniotomy ? Approved by: Gomez Linda M.D. on 12/19/2020 at 22:39? ECG Data Interpretation: Sinus rhythm with 1st degree AV block. No ST elevation or depression. Rate 72 MDM Narrative Medical decision making narrative: Upper for admission for chest pain evaluation and observation. Reviewed with shipyard painter helper and agrees with treatment plan. Reviewed with patient and and agree as well. Discharge Plan Departure Patient Disposition: Admitted as Observation Clinical Impression: Chest pain Qualifiers: Chest pain type: unspecified Qualified Code(s): R07.9 - Chest pain, unspecified Admit Date/Time: 12/19/20 23:44 Admit Provider: Vanessa Garcia
[2020-12-19 22:44] LABS: Troponin I < 0.012 ng/mL (0.01-0.034)
--- NOTE | 2020-12-19 23:24 | DI.ECHO.S_ITS ---
[place] [facility]---------+ [facility] +---------+ : : [address] : : : : [id number] : : : : Phone: [phone] Echocardiogram Report + + :Name: FAWN KEANE Study Date: 12/20/2020 Height: 65 in : :[facility] ReadingLocation: Weight: 140 lb: : Gender: Female BSA: 1.7 m2 : :: 1955 Age: 64 yrs : :Reason For Study: Chest pain : : Performed By: ADNRE MUNGUIA : :Referring: MARY ACEVEDO : + + Interpretation Summary The left ventricle is normal in size. The ejection fraction is estimated to be 65-70%. The right ventricle is mildly dilated. The right ventricular systolic function is normal. There is mild to moderate tricuspid regurgitation. Compared to the prior echo exam, there has been an increase in TR severity. The right ventricular systolic pressure is estimated to be at least 28 mmHg based on an estimated right atrial pressure of 3 mm Hg. Compared to the prior echo exam, there has been no change in the severity of pulmonary hypertension. Procedure: A two-dimensional transthoracic echocardiogram with color flow and Doppler was performed. The study quality was technically adequate. Comparison is made with the echocardiogram of 10/22/2014. The patient was in normal sinus rhythm during the exam. Left Ventricle: The left ventricle is normal in size. There is borderline proximal septal thickening noted. There is no thrombus. The ejection fraction is estimated to be 65-70%. There are no focal wall motion abnormalities. MV E/A: 1.3 Med Peak E' Rick: 7.8 cm/sec E/E' med: 13.1. Right Ventricle: The right ventricle is mildly dilated. The right ventricular systolic function is normal. Atria: The left atrium is mildly dilated. The right atrium is mildly dilated. There is no Doppler evidence for an interatrial shunt. The thickening of interatrial septum suggests lipomatous hypertrophy. Mitral Valve: The mitral valve leaflets are slightly calcified. There is mild mitral regurgitation. Compared to the prior echo study, there has been no change in the severity of mitral regurgitation. Aortic Valve: The aortic valve is trileaflet. The aortic valve opens well. There is no aortic valve stenosis. There is trace aortic regurgitation. Tricuspid Valve: The tricuspid valve is normal. There is mild to moderate tricuspid regurgitation. The right ventricular systolic pressure is estimated to be at least 28 mmHg based on an estimated right atrial pressure of 3 mm Hg. Compared to the prior echo exam, there has been an increase in TR severity. Compared to the prior echo exam, there has been no change in the severity of pulmonary hypertension. Pulmonic Valve: The pulmonic valve leaflets are thin and pliable; valve motion is normal. There is a trace or physiologic amount of pulmonic regurgitation. Great Vessels: The aortic root is normal size. The ascending aorta is at the upper limits of normal in size. The aortic arch is normal in size. The IVC is of normal diameter and collapses greater than 50% with a sniff. This suggests a low right atrial pressure of 3 mm Hg. Pericardium/ Pleura There is an anterior echo-free space consistent with a fat pad. There is no pleural effusion. MMode/2D Measurements & Calculations LVIDd: 3.6 cm LVOT diam: 1.7 cm LVIDs: 2.5 cm Ao root diam: 3.2 cm FS: 29.8 % asc Aorta Diam: 3.5 cm IVSd: 1.1 cm Ao Arch Diam (Prox Trans): 2.9 cm LVPWd: 1.0 cm LV cormier. diameter/BSA (cm/m^2): 2.1 LV sys. diameter/BSA (cm/m^2): 1.5 LA A2 area: 18.6 cm2 RA long axis: 5.3 cm LA A4 area: 18.9 cm2 RA area: 19.5 cm2 LA length (vol): 5.1 cm RA vol: 61.2 ml LA vol: 59.1 ml RA : 36.0 ml/m2 LA vol index: 34.8 ml/m2 RVD1 (basal): 4.5 cm TAPSE: 2.2 cm Doppler Measurements & Calculations Ao V2 max: 163.3 cm/sec LVOT Max Rick: 144.3 cm/sec Ao V2 mean: 115.7 cm/sec LV V1 max P.3 mmHg Ao max P.7 mmHg LV V1 VTI: 30.7 cm Ao mean P.7 mmHg ELISE(I,D): 1.9 cm2 Ao V2 VTI: 36.6 cm ELISE(V,D): 2.0 cm2 sev ratio: 0.84 ELISE indexed to BSA (cm^2/m^2): 1.1 MV E max rick: 102.4 cm/sec TR max rick: 250.5 cm/sec MV A max rick: 76.4 cm/sec TR max P.1 mmHg MV E/A: 1.3 PA V2 max: 72.9 cm/sec Med Peak E' Rick: 7.8 cm/sec PA V2 mean: 55.5 cm/sec E/E' med: 13.1 PA mean P.3 mmHg Lat Peak E' Rick: 9.1 cm/sec PA pr(Accel): 10.5 mmHg E/E' lat: 11.3 E/e' average: 12.2 MV dec time: 0.18 sec SV(LVOT): 69.8 ml Reading Physician:02:19 PM
[2020-12-19 23:58] LABS: NT-proBNP (BNP-Adult 18+) 19 pg/mL (<125)
[2020-12-20] VITALS (10 sets, daily range): BP systolic 123–152; BP diastolic 76–110; PULSE 71–77; RESP 16–18; TEMP 36.1–36.7; O2SAT 96–99; BMI 23.3
[2020-12-20 01:53] LABS: Troponin I < 0.012 ng/mL (0.01-0.034)
--- NOTE | 2020-12-20 04:48 | P.HP_ITS ---
History of Present Illness History of Present Illness Date Patient Seen: 12/19/20 Time Patient Seen: 23:21 Chief complaint: HIGH BLOOD PRESSURE Narrative: Enedina Tuttle is a 64 year old female with a history of multiple sclerosis with MCI progressive, tremor, trigeminal neuralgia, primary aldosteronism, hypothyroidism, osteopenia, Raynaud's disease, cirrhosis,, ch ronic hyponatremia, and benign lung mass who presented to the ED with a chief complaint sudden on set left-sided chest pain nonradiating at 6:00 p.m. tonight, which was resolved by 2 Nitro in ED. The patient had noticed high blood pressure at doctor's office yesterday, she had been compliant with her medications.? Aspirin given in ED, and patient also took her evening meds.? No prior history of stress test or echocardiogram or heart catheterizations.? Had recent fall to the head.? [place] removed a week ago.? Continues to have c/o headache occansionally. Upon admit to the floor the patient is resting in bed, patient currently denies chest pain, shortness of breath, diaphoresis, headache, changes in vision, new or unusual weakness numbness tingling, abdominal pain, nausea, vomiting, recent injury illness or trauma other than head injury stated above. Patient initially presented to the ED significantly hypertensive blood pressures ranging 152/110, 190/107, 160/90, 170/93 on admit. Patient's CBC WNL, sodium 132, chloride 94, troponins x2 are negative, patient's chest x-ray is negative for acute cardiopulmonary processes. Patient's EKG sinus rhythm with a rate of 72, first-degree AV block without ST or T-wave changes. Chest pain resolved with nitro x2 in the ED, not present on admission. Alejandra consulted Dr. Martinez cardiology who recommended admit and echocardiogram. Patient admitted for chest pain rule out. Patient History Medical History (Updated 12/20/20 @ 05:18 by EDA Brennan) Acquired hypothyroidism Chronic hyponatremia Essential hypertension History of shingles Lung mass Multiple sclerosis, primary progressive Primary aldosteronism Psoriasis Raynauds disease Tremor due to disorder of central nervous system Trigeminal neuralgia Surgical History (Updated 12/20/20 @ 05:18 by EDA Brennan) History of cervical discectomy History of craniotomy History of total abdominal hysterectomy Family & Social History Family History Mother Cancer Hypertension Father Hypertension Safety & Behavioral: Feels Safe in Current Yes Environment Been Physically Hurt or No Threatened By a Person Tobacco & Substance use: Smoking Status Never smoker alcohol intake frequency 0-2 drinks per day Substance Use Type does not use Meds Home Medications and Allergies Home Medications Medication Instructions Recorded Confirmed Type amlodipine 10 mg tablet 5 mg PO QPM #0 12/01/12 12/19/20 History clonazepam 0.5 mg tablet 0.25 mg PO QID #0 tab 12/01/12 10/25/19 History lisinopril 20 mg tablet 20 mg PO QDAY #0 12/01/12 10/25/19 History spironolactone 50 mg tablet 50 mg PO BID #0 tab 12/17/15 10/25/19 History carbamazepine 200 mg tablet 200 mg PO QID #0 01/27/17 10/25/19 History nortriptyline 25 mg capsule 50 mg PO BID #0 01/27/17 10/25/19 History clonidine HCl 0.3 mg tablet #0 06/01/17 01/01/18 History calcium carbonate 500 mg calcium 1 tab PO QDAY #0 06/07/17 01/01/18 History (1,250 mg) tablet clobetasol 0.05 % topical ointment 1 nuria TOPICAL BID #0 06/07/17 01/01/18 History multivitamin (Multiple Vitamins) 1 tab PO QDAY #0 06/07/17 01/01/18 History polyethylene glycol 3350 17 gram 17 gm PO PRN PRN #0 06/07/17 01/01/18 History oral powder packet (Miralax) vitamin B complex (B 1 tab PO QDAY #0 06/07/17 10/25/19 History Complex-Vitamin B12) loperamide 2 mg tablet (Imodium 2 mg PO Q2-4H PRN #30 tab 01/01/18 Rx A-D) omeprazole 20 mg capsule,delayed 20 mg PO DAILY PRN #30 cap 01/01/18 Rx release carvedilol 25 mg tablet 25 mg PO BID 10/25/19 10/25/19 History gabapentin 300 mg capsule 300 mg PO TID 10/25/19 10/25/19 History methocarbamol 750 mg tablet 750 mg PO 5XD 10/25/19 10/25/19 History Allergies Allergy/AdvReac Type Severity Reaction Status Date / Time adhesive [ADHESIVE] Allergy Intermediate RASH Verified 12/19/20 20:20 erythromycin base Allergy Intermediate RASH Verified 12/19/20 20:20 [ERYTHROMYCIN BASE] fluoxetine [From PROZAC] Allergy Intermediate ANXIOUS, Verified 12/19/20 20:20 JITTERY metoprolol [METOPROLOL] Allergy Intermediate RASH Verified 12/19/20 20:20 neomycin Allergy Intermediate RASH Verified 12/19/20 20:20 [From NEOSPORIN ([id number])] polymyxin B Allergy Intermediate RASH Verified 12/19/20 20:20 [From NEOSPORIN ([id number])] sertraline [From ZOLOFT] Allergy Intermediate UPSET Verified 12/19/20 20:20 STOMACH, NO LIBIDO iodine [IODINE] Allergy Mild RASH Verified 12/19/20 20:20 nitrofurantoin Allergy Unknown Gastrointestinal Verified 12/19/20 20:20 [NITROFURANTOIN] Upset codeine [CODEINE] AdvReac Severe STOMACH Verified 12/19/20 20:20 UPSET,VOMITING. Sulfa (Sulfonamide AdvReac Intermediate Diarrhea Verified 12/19/20 20:20 Antibiotics) venlafaxine [VENLAFAXINE] AdvReac Unknown NO LIBIDO Verified 12/12/20 13:50 Review of Systems Review of Systems Narrative: All 12 point systems reviewed with the patient and are negative except otherwise documented. Exam Vital Signs (past 8 hours): - 12/19/20 20:50 12/19/20 20:55 12/19/20 21:00 Temperature Pulse Rate 76 74 71 Respiratory Rate 23 29 H 11 L Blood Pressure 156/94 H 170/93 H 160/94 H Pulse Oximetry 97 97 97 12/19/20 21:05 12/19/20 21:10 12/19/20 21:15 Temperature Pulse Rate 67 67 69 Respiratory Rate 12 9 L 7 L Blood Pressure 175/99 H 164/99 H 170/98 H Pulse Oximetry 99 98 97 12/19/20 21:20 12/19/20 21:25 12/19/20 21:30 Temperature Pulse Rate 70 69 68 Respiratory Rate 15 13 12 Blood Pressure 164/99 H 162/100 H 158/99 H Pulse Oximetry 97 97 96 12/19/20 21:35 12/19/20 21:40 12/19/20 21:45 Temperature Pulse Rate 75 71 72 Respiratory Rate 14 11 L 8 L Blood Pressure 159/104 H 173/98 H 165/108 H Pulse Oximetry 98 98 98 12/19/20 21:50 12/19/20 21:55 12/19/20 22:00 Temperature Pulse Rate 71 71 73 Respiratory Rate 11 L 9 L 25 H Blood Pressure 165/104 H 162/101 H 171/104 H Pulse Oximetry 97 97 97 12/19/20 22:05 12/19/20 22:10 12/19/20 22:15 Temperature Pulse Rate 71 68 68 Respiratory Rate 20 26 H 30 H Blood Pressure 167/97 H 168/96 H 168/98 H Pulse Oximetry 97 98 98 12/19/20 22:20 12/19/20 22:25 12/19/20 22:30 Temperature Pulse Rate 68 68 68 Respiratory Rate 42 H 29 H 21 Blood Pressure 167/98 H 175/97 H 168/99 H Pulse Oximetry 98 97 97 12/19/20 23:11 12/19/20 23:20 12/19/20 23:30 Temperature 97.8 F Pulse Rate 71 70 68 Respiratory Rate 18 13 Blood Pressure 161/94 H Pulse Oximetry 96 100 98 12/20/20 00:00 12/20/20 01:03 12/20/20 03:20 Temperature 97.0 F L Pulse Rate 71 73 Respiratory Rate 18 16 Blood Pressure 152/110 H Pulse Oximetry 96 99 99 Oxygen Delivery Method Room Air Oxygen Flow Rate 0 Narrative Exam Narrative: General: Patient is a well-nourished female in no distress at this time. HEENT: Normocephalic, atraumatic, extraocular muscles intact, oral pharynx is clear and mucous membranes are moist. Neck is supple and symmetric, trachea is midline, no adenopathy, no thyroid enlargement, nontender, no masses palpated. Negative for JVD Chest: Normal AP diameter and contour without kyphoscoliosis, no nasal flaring, retractions, or tachypneic labored Lungs: Auscultation of all lung [place] are clear without adventitious sounds, wheezes, rhonchi, or rales. Cardio: regular rate and rhythm without murmur, rubs, or gallops, no carotid bruit, no cardiac pulsations present. Abdomen: Soft nontender, negative for organomegaly, or masses. Bowel sounds are present in all 4 quadrants without guarding or rebound, no CVA tenderness. Musculoskeletal: no deformity, crepitus, effusions, cyanosis, clubbing or edema present. Full range of motion intact radial and pedal pulses are normal. Skin: Warm dry and intact without rashes, ulcerations or petechiae. Neuro: Alert and orientated x3, no gross deficits noted of cranial nerves. Psych: Patient has a well-kept appearance, appropriate affect, mental status attitude thought context and judgment are appropriate for age. Objective Labs Result Diagrams: 12/19/20 20:15 12/19/20 20:15 Labs: Laboratory Results - last 24 hr 12/19/20 12/19/20 12/19/20 20:15 20:15 20:15 WBC 5.2 RBC 3.94 L Hgb 12.8 Hct 37.6 MCV 95.4 MCH 32.6 MCHC 34.1 RDW 13.6 Plt Count 251 Neut % (Auto) 59.5 Lymph % (Auto) 27.8 [place] % (Auto) 10.8 Eos % (Auto) 1.1 L Baso % (Auto) 0.8 Neut # (Auto) 3100 Lymph # (Auto) 1400 [place] # (Auto) 600 Eos # (Auto) 100 Baso # (Auto) 0 Sodium 132 L Potassium 4.2 Chloride 94 L Carbon Dioxide 32 BUN 15 Creatinine 0.53 Estimated GFR > 60.0 BUN/Creatinine Ratio 28.3 H Glucose 92 Calcium 9.4 Magnesium 1.7 Total Bilirubin 0.4 AST 38 H ALT 32 Alkaline Phosphatase 77 Total Creatine Kinase 102 CK-MB (CK-2) < 0.22 CK-MB (CK-2) Rel Index 0.2 L Troponin I < 0.012 NT-Pro-B Natriuret Pep 19 Total Protein 7.5 Albumin 4.5 Globulin 3.0 Albumin/Globulin Ratio 1.5 Lipase 150 SARS-CoV-2 (PCR) 12/19/20 12/19/20 12/20/20 20:45 22:15 01:26 WBC RBC Hgb Hct MCV MCH MCHC RDW Plt Count Neut % (Auto) Lymph % (Auto) [place] % (Auto) Eos % (Auto) Baso % (Auto) Neut # (Auto) Lymph # (Auto) [place] # (Auto) Eos # (Auto) Baso # (Auto) Sodium Potassium Chloride Carbon Dioxide BUN Creatinine Estimated GFR BUN/Creatinine Ratio Glucose Calcium Magnesium Total Bilirubin AST ALT Alkaline Phosphatase Total Creatine Kinase CK-MB (CK-2) CK-MB (CK-2) Rel Index Troponin I < 0.012 < 0.012 NT-Pro-B Natriuret Pep Total Protein Albumin Globulin Albumin/Globulin Ratio Lipase SARS-CoV-2 (PCR) Negative Assessment & Plan Assessment & Plan narrative: Enedina Tuttle is a 64 year old female with a history of multiple sclerosis with MCI progressive, tremor, trigeminal neuralgia, primary aldosteronism, hypothyroidism, osteopenia, Raynaud's disease, cirrhosis,, chronic hyponatremia, and benign lung mass who presented to the ED with a chief complaint sudden on set left-sided chest pain nonradiating at 6:00 p.m. tonight, which was resolved by 2 Nitro in ED. Patient admitted for chest pain rule out. 1. Chest pain, acute, in the setting of essential hypertension with hypertensive urgency, acute on chronic, present on admission -Rule out myocardial ischemia, ACS, CAD, aortic dissection, demand ischemia -initial BP 190/107, 152/110, 160/90, on admit 170/93-patient is stable and asymptomatic -ordered IV metoprolol 5 mg as needed for SBP> 180 or DBP >100 -Trend Troponins-Troponin x 2 WNL -EKG sinus rhythm with a rate of 72, first-degree AV block, without ST or T-wave changes -ASA 81 mg -continue patient's amlodipine, carvedilol, lisinopril, spirolactone -consider increasing amlodipine to 10 mg at bedtime and/or increasing lisinopril to 30 mg q.day, concerned about increasing carvedilol due to the patient's chronic lower heart rate. -Echo ordered for today-did not order stresstest as patient states she is unable to conmplete. -admitted under chest pain protocol-morphine and nitro for chest pain as needed -placed on Telemed -Labs :lipid panel, BNP, PT and PTT in the a.m. 2. Multiple sclerosis with ND see progressive, tremor, trigeminal neuralgia, chronic, present on admission -continue the patient's nortriptyline, gabapentin, cabamazepine, methocarbamol 3. 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 Hypothyroidism, chronic, present on admission -TSH with T4 ordered -continue patient's levothyroxine 5.GERD, chronic, present on admission -continue patient's omeprazole Code status:DNR-per patient Surrogate decision maker: Spouse Juancarlos Tuttle COVID PCR:Negative COVID vaccination: Moderna 2020 DVT/VTE prophylaxis:Lovenox 40mg & SCD's Disposition: Patient admitted for observation expected length of stay less than 2 midnights. I have utilized all available immediate resources to obtain, update, or review the patient's current medications. I confirmed that the patient's advanced care plan is present, Code status is doc umented and/or surrogate decision maker is listed in the patient's medical record. Time Spent With Patient Critical Care time: I spent a total of [] minutes of critical care time on this patient's care today; this time is exclusive of procedural time.
[2020-12-20 06:54] LABS: Prothrombin Time 11.6 SECONDS (10.1-12.7)
[2020-12-20 06:56] LABS: PTT Partial Thromboplastin Tim 29 SECONDS (26.4-36.2)
[2020-12-20 06:58] LABS: BUN Creatinine Ratio 26.8 (6-22); Blood Urea Nitrogen 15 mg/dL (7-17); Calcium 9.4 mg/dL (8.4-10.2); Carbon Dioxide 32 mmol/L (22-32); Chloride 98 mmol/L (98-107); Cholesterol 184 mg/dL (140-199); Estimated Glomerular Filt Rate > 60.0 mL/min (>60); Glucose 71 mg/dL (80-110); HEMOLYSIS 33 (0-50); Potassium 3.8 mmol/L (3.4-5.1); Sodium 134 mmol/L (137-145); Triglycerides 84 mg/dL (35-150)
[2020-12-20 07:06] LABS: HDL Cholesterol 138 mg/dL (40-60); LDL Cholesterol Calculated 29 mg/dL (<100)
[2020-12-20 07:37] LABS: TSH w/ Reflex to FT4 0.48 uIU/mL (0.47-4.68)
--- NOTE | 2020-12-20 09:04 | PC.NURSE ---
Addendum entered by Adwoa Bergman R.N. 12/20/20 13:03: Patient ambulating in the halls with , using FWW. Denies chest pain or SOB. Original Note: Patient is resting with eyes closed, breathing unlabored, tele on, SCD's on. Call light in reach. Will continue to monitor.
[2020-12-20] MEDS: ASPIRIN EC 81 MG TABLET PO (09:47)
[2020-12-20] MEDS: carBAMazepine 200 MG TABLET PO ×2 (09:48→13:15)
[2020-12-20] MEDS: carvediloL 12.5 MG TABLET 25 MG PO (09:48)
[2020-12-20] MEDS: ENOXAPARIN 40 MG/0.4 ML SYRINGE SUBCUT (09:48)
[2020-12-20] MEDS: NORTRIPTYLINE HCL 25 MG CAPSULE 50 MG PO (09:49)
[2020-12-20] MEDS: GABAPENTIN 300 MG CAPSULE PO ×2 (09:49→14:01)
[2020-12-20] MEDS: lisinopriL 20 MG TABLET PO (09:49)
[2020-12-20] MEDS: methocarbamoL 500 MG TABLET 750 MG PO ×2 (09:49→13:15)
[2020-12-20] MEDS: SPIRONOLACTONE 25 MG TABLET 50 MG PO (09:49)
--- NOTE | 2020-12-20 10:58 | CM.DANOTE ---
DCP Cont: Case received, EMR reviewed and met with patient. Patient's spouse, Juancarlos, was at bedside. Introduced self and role. Was able to obtain information regarding patient's baseline activity status prior to hospitalization. DCP assessment completed with information currently available. Patient is a 64 year old female who admitted yesterday evening to the care of the hospitalist team. PCP: Dr. Willams. Payer: confirmed: [employer]. Patient came to the hospital via private vehicle secondary to having some chest discomfort. Patient was noted to have HTN, and some findings on her EKG. She is here for a cardiac work up. Patient has history of MS, as wel as trigeminal neuralgia. Met with patient and spouse in the room. She was sitting up in her chair, alert, but soft spoken. Answered yes or no questions. She does not use any DME supplies at home, and does not drive. Spouse takes patient to all of her appointments. P: Patient is supposed to discharge home today. She will be having an echo before discharge. Katt Guillen RN/Balloon Dipper Discharge Planning/Care Management CM Discharge Assessment Start: 12/20/20 10:57 Freq: Status: Active Protocol: Document 12/20/20 10:57 (Rec: 12/20/20 10:58 [id number]) Discharge Planning Assessment Assigned Treasury Management Sales Consultant Katt Guillen RN/Balloon Dipper Advance Directives? Yes: Health care direc/DPOA med-Health care Advance Directives on File No History Provided By Patient,Significant Other Prior Living Arrangements House Household Members spouse Type of transporation used prior to Relies on Others admit Independent with ADL's Yes Is patient alert and oriented? Yes Needs Assistance With Home Chores / Shopping Caregiver for Another No Barriers to Discharge No Discharge Plan Home Transportation Arrangement Spouse Referrals Initiated None needed Whiteboard Updated in Patient Room with Yes name and ext. # of Treasury Management Sales Consultant Review Status In Process Next Review Type Continued Stay Review
--- NOTE | 2020-12-20 14:19 | PC.NURSE ---
PT DOING FAIR-GOOD, TOLERATING ROOM AIR AND DIET CHANGES TO ADVANCED DYSPHAGIA WITH THIN LIQUIDS, REMAINS IN SA/SB RHYTHM WITH 1ST DEGREE AVB - SLIGHT EDEMA TO BILAT LOWER EXTREMITIES- AM TOLD BY PT AND SPOUSE THAT THIS IS HIS NORM. HE DENIES ANY PAIN AND IS BEING ASSESSED BY PT/OT/ST- ESPINO PATENT AND IV IS SALINE LOCKED - CONTINUING IV ABX AT THIS TIME.
--- NOTE | 2020-12-20 14:46 | PM.DS.1 ---
History of Present Illness History of Present Illness Date Patient Seen: 12/20/20 Time Patient Seen: 08:30 Chief complaint: HIGH BLOOD PRESSURE Narrative: Per Vanessa Garcia, TRUSS DRIVER HELPER-BC: Enedina Tuttle is a 64 year old female with a history of multiple sclerosis with MCI progressive, tremor, trigeminal neuralgia, primary aldosteronism, hypothyroidism, osteopenia, Raynaud's disease, cirrhosis,, chronic hyponatremia, and benign lung mass who presented to the ED with a chief complaint sudden on set left-sided chest pain nonradiating at 6:00 p.m. tonight, which was resolved by 2 Nitro in ED.? The patient had noticed high blood pressure at doctor's office yesterday, she had been compliant with her medications.? Aspirin given in ED, and patient also took her evening meds.? No prior history of stress test or echocardiogram or heart catheterizations.? Had recent fall to the head.? [place] removed a week ago.? Continues to have c/o headache occansionally. Upon admit to the floor the patient is resting in bed, patient currently denies chest pain, shortness of breath, diaphoresis, headache, changes in vision, new or unusual weakness numbness tingling, abdominal pain, nausea, vomiting, recent injury illness or trauma other than head injury stated above. Patient initially presented to the ED significantly hypertensive blood pressures ranging 152/110,? 190/107, 160/90, 170/93 on admit.? Patient's CBC WNL, sodium 132, chloride 94, troponins x2 are negative, patient's chest x-ray is negative for acute cardiopulmonary processes.? Patient's EKG sinus rhythm with a rate of 72, first-degree AV block without ST or T-wave changes.? Chest pain resolved with nitro x2 in the ED, not present on admission.? E.d. consulted Dr. Martinez cardiology who recommended admit and echocardiogram.? Patient admitted for chest pain rule out. Discharge Providers Provider Date of admission: 12/19/20 23:44 Discharge Date: 12/20/20 Primary care physician: Brian Willams MD Discharge provider: Federico Mcdowell DO Summary Hospital Course Discharge Diagnosis: 1. Chest pain, acute, resolved, in the setting of essential hypertension, acute on chronic, present on admission. ACS ruled out. 2. Multiple sclerosis with trigeminal neuralgia, chronic, present on admission 3. Hyponatremia, mild improved. 4. Hypothyroidism, chronic, present on admission 5.GERD, chronic, present on admission Hospital Course: ?Enedina Tuttle is a 64 year old female with a history of multiple sclerosis with MCI progressive, tremor, trigeminal neuralgia, primary aldosteronism, hypothyroidism, osteopenia, Raynaud's disease, cirrhosis, chronic hyponatremia, and benign lung mass who presented to the ED with a chief complaint sudden on set left-sided chest pain, which was resolved by 2 Nitro in ED. Reportedly recommended for TTE by cardiology per ER provider. She was also noted to be mildly hypertensive. Troponins were negative. Her home amlodipine was increased for her blood pressure. Echo was able to be performed which showed a normal ejection fraction and no evidence of wall motion abnormalities. I recommend that she further follow-up with her primary care provider for further evaluation. There were no recurrences of her symptoms during admission. Exam Vital Signs (past 8 hours): - 12/20/20 07:00 12/20/20 09:40 12/20/20 09:48 Temperature 97.2 F L Pulse Rate 77 77 Respiratory Rate 17 Blood Pressure 147/88 H 147/88 H Pulse Oximetry 98 97 12/20/20 11:00 12/20/20 11:15 12/20/20 14:25 Temperature Pulse Rate 75 77 Respiratory Rate 16 Blood Pressure 123/76 139/94 H Pulse Oximetry 98 99 Oxygen Delivery Method Room Air Oxygen Flow Rate 0 Narrative Exam Narrative: ?General:? Patient is a well-nourished female in no distress at this time. Lungs:?CTA b/l without wheezing, rhonchi, or rales. Cardio:?RRR no m/r/g. Abdomen:?S NT ND. Musculoskeletal:? no tenderness or joint effusions Skin:? Warm dry and intact without rashes, ulcerations or petechiae.? Objective Labs Result Diagrams: 12/19/20 20:15 12/20/20 06:15 Labs: Laboratory Results - last 24 hr 12/19/20 12/19/20 12/19/20 20:15 20:15 20:15 WBC 5.2 RBC 3.94 L Hgb 12.8 Hct 37.6 MCV 95.4 MCH 32.6 MCHC 34.1 RDW 13.6 Plt Count 251 Neut % (Auto) 59.5 Lymph % (Auto) 27.8 [place] % (Auto) 10.8 Eos % (Auto) 1.1 L Baso % (Auto) 0.8 Neut # (Auto) 3100 Lymph # (Auto) 1400 [place] # (Auto) 600 Eos # (Auto) 100 Baso # (Auto) 0 PT INR APTT Sodium 132 L Potassium 4.2 Chloride 94 L Carbon Dioxide 32 BUN 15 Creatinine 0.53 Estimated GFR > 60.0 BUN/Creatinine Ratio 28.3 H Glucose 92 Calcium 9.4 Magnesium 1.7 Total Bilirubin 0.4 AST 38 H ALT 32 Alkaline Phosphatase 77 Total Creatine Kinase 102 CK-MB (CK-2) < 0.22 CK-MB (CK-2) Rel Index 0.2 L Troponin I < 0.012 NT-Pro-B Natriuret Pep 19 Total Protein 7.5 Albumin 4.5 Globulin 3.0 Albumin/Globulin Ratio 1.5 Triglycerides Cholesterol LDL Cholesterol, Calc HDL Cholesterol Lipase 150 TSH SARS-CoV-2 (PCR) 12/19/20 12/19/20 12/20/20 20:45 22:15 01:26 WBC RBC Hgb Hct MCV MCH MCHC RDW Plt Count Neut % (Auto) Lymph % (Auto) [place] % (Auto) Eos % (Auto) Baso % (Auto) Neut # (Auto) Lymph # (Auto) [place] # (Auto) Eos # (Auto) Baso # (Auto) PT INR APTT Sodium Potassium Chloride Carbon Dioxide BUN Creatinine Estimated GFR BUN/Creatinine Ratio Glucose Calcium Magnesium Total Bilirubin AST ALT Alkaline Phosphatase Total Creatine Kinase CK-MB (CK-2) CK-MB (CK-2) Rel Index Troponin I < 0.012 < 0.012 NT-Pro-B Natriuret Pep Total Protein Albumin Globulin Albumin/Globulin Ratio Triglycerides Cholesterol LDL Cholesterol, Calc HDL Cholesterol Lipase TSH SARS-CoV-2 (PCR) Negative 12/20/20 12/20/20 12/20/20 06:15 06:15 06:15 WBC RBC Hgb Hct MCV MCH MCHC RDW Plt Count Neut % (Auto) Lymph % (Auto) [place] % (Auto) Eos % (Auto) Baso % (Auto) Neut # (Auto) Lymph # (Auto) [place] # (Auto) Eos # (Auto) Baso # (Auto) PT 11.6 INR 1.0 APTT 29 Sodium 134 L Potassium 3.8 Chloride 98 Carbon Dioxide 32 BUN 15 Creatinine 0.56 Estimated GFR > 60.0 BUN/Creatinine Ratio 26.8 H Glucose 71 L Calcium 9.4 Magnesium Total Bilirubin AST ALT Alkaline Phosphatase Total Creatine Kinase CK-MB (CK-2) CK-MB (CK-2) Rel Index Troponin I NT-Pro-B Natriuret Pep Total Protein Albumin Globulin Albumin/Globulin Ratio Triglycerides 84 Cholesterol 184 LDL Cholesterol, Calc 29 HDL Cholesterol 138 H Lipase TSH 0.48 SARS-CoV-2 (PCR) [facility] Medical History (Updated 12/20/20 @ 05:18 by Vanessa Garcia [facility]-) Acquired hypothyroidism Chronic hyponatremia Essential hypertension History of shingles Lung mass Multiple sclerosis, primary progressive Primary aldosteronism Psoriasis Raynauds disease Tremor due to disorder of central nervous system Trigeminal neuralgia Surgical History (Updated 12/20/20 @ 05:18 by OTILIA Brennan-) History of cervical discectomy History of craniotomy History of total abdominal hysterectomy Family History Mother Cancer Hypertension Father Hypertension Social History household members: spouse Smoking Status: Never smoker Discharge Plan Discharge Plan Patient Disposition: Home Provider Discharge Comment: You were admitted to the hospital with chest pain. Source not entirely clear but your ultrasound of your heart appears normal. Please follow up with your PCP to see about possible further evaluation as an outpatient. Recommend increasing your amlodipine to 10 mg daily instead of 5. Please keep a BP log at home to help guide treatments. If your blood pressure is low after this change at home, you can go back to your previous medications. Discharge orders & Medications Prescriptions: Continued clonazepam 0.5 MG tablet 0.25 mg PO QID Qty: 0 RF: 0 lisinopril 20 MG tablet 20 mg PO QDAY Qty: 0 RF: 0 spironolactone 50 MG tablet 50 mg PO BID Qty: 0 RF: 0 carbamazepine 200 MG tablet 200 mg PO QID Qty: 0 RF: 0 nortriptyline 25 MG capsule 50 mg PO BID Qty: 0 RF: 0 polyethylene glycol 3350 [Miralax] 17 GM powder in packet 17 gm PO PRN PRN (Reason: Constipation) Qty: 0 RF: 0 vitamin B complex [B Complex-Vitamin B12] 1 EACH tablet 1 tab PO QDAY Qty: 0 RF: 0 carvedilol 25 mg Tablet 25 mg PO BID RF: 0 methocarbamol 750 mg Tablet 750 mg PO 5XD RF: 0 gabapentin 300 mg Capsule 300 mg PO TID RF: 0 Changed amlodipine 10 MG tablet 10 mg PO QPM Qty: 0 RF: 0 Follow up/Referrals: Brian Willams MD [Primary Care Provider] - Diet/Activity/Treatments Diet: Diet as Tolerated and Low-sodium Activity: As tolerated Visit Report/Discharge Packet Instructions: DI for Chest Pain Discharge Data Primary Care Provider: Brian Willams V Attending Provider: Vanessa Garcia
== END 2020-12-20 15:50 | disposition home or self-care (01) ==
LOC: ED 22:46 → AC 23:44
PROVIDERS: Admitting Provider Nurse Practitioner Family; Emergency Provider Emergency Medicine; PCP Internal Medicine; Referring Provider Emergency Medicine; Visit Provider Nurse Practitioner Family
DX: R07.9 Chest pain, unspecified (principal); I10 Essential (primary) hypertension; G35 Multiple sclerosis; E03.9 Hypothyroidism, unspecified; K21.9 Gastro-esophageal reflux disease without esophagitis; G50.0 Trigeminal neuralgia; E87.1 Hypo-osmolality and hyponatremia; Z20.822 Contact with and (suspected) exposure to COVID-19; Z66 Do not resuscitate
CPT/HCPCS: 36415; 70450; 71045; 80048; 80053; 80061; 82550; 82553; 83690; 83735; 83880; 84443; 84484; 85025; 85610; 85730; 87635; 93005; 93306; 96372; 99284; C9803; G0378; J1650

== ENCOUNTER → 2021-01-19 14:59 | Outpatient (CLI) | payer OTHER, SELFPAY ==
[2020-12-20 00:15] VITALS: BMI 23.3
[2021-01-19 16:44] LABS: Add Manual Diff / Slide Review NO; Basophils Absolute Auto 0 /uL (0-100); Basophils Percent Auto 0.7 % (0-2); Eosinophils Absolute Auto 100 /uL (0-450); Eosinophils Percent Auto 1.1 % (2-4); Hematocrit 36.8 % (36-46); Hemoglobin 12.4 g/dL (12.0-16.0); Lymphocytes Absolute Auto 1400 /uL (1100-4500); Lymphocytes Percent Auto 28.1 % (25-40); Mean Corpuscular HGB Conc 33.8 % (30-36); Mean Corpuscular Hemoglobin 32.3 PG (26-34); Mean Corpuscular Volume 95.6 fL (80-100); Monocytes Absolute Auto 500 /uL (0-900); Monocytes Percent Auto 10.2 % (3-14); Neutrophils Absolute Auto 3000 /uL (1500-7000); Neutrophils Percent Auto 59.9 % (50-75); Platelet Count 239 X10^3/uL (150-400); Red Blood Cell Count 3.85 X10^6/uL (4.0-5.2); Red Cell Distribution Width 13.6 % (11.6-14.8)
[2021-01-19 17:06] LABS: Alanine Aminotransferase 36 IU/L (<35); Albumin 4.4 g/dL (3.5-5.0); Albumin Globulin Ratio 1.7 (1.0-2.8); Alkaline Phosphatase 76 U/L (38-126); Aspartate Aminotransferase 40 IU/L (14-36); BUN Creatinine Ratio 17.8 (6-22); Bilirubin Total 0.4 mg/dL (0.2-1.3); Blood Urea Nitrogen 16 mg/dL (7-17); Calcium 9.2 mg/dL (8.4-10.2); Carbon Dioxide 31 mmol/L (22-32); Chloride 96 mmol/L (98-107); Estimated Glomerular Filt Rate > 60.0 mL/min (>60); Globulin 2.6 g/dL (1.7-4.1); Glucose 89 mg/dL (80-110); HEMOLYSIS < 15 (0-50); Potassium 5.2 mmol/L (3.4-5.1); Sodium 134 mmol/L (137-145)
[2021-01-19 17:55] LABS: Vitamin B12 Reflex MMA if <400 650 pg/mL (239-931)
[2021-01-20 03:11] LABS: Carbamazepine Tegretol Level 8.1 ug/mL (4.0-12.0)
[2021-01-23 10:09] LABS: 1,25-Dihydroxy, Vitamin D-2 <10 pg/mL (.)
== END ==
PROVIDERS: PCP Internal Medicine; Referring Provider Psychiatry & Neurology Neurology; Visit Provider Psychiatry & Neurology Neurology
DX: G50.0 Trigeminal neuralgia (principal); Z91.81 History of falling; G31.84 Mild cognitive impairment of uncertain or unknown etiology; Q78.2 Osteopetrosis; G35 Multiple sclerosis
CPT/HCPCS: 36415; 80053; 80156; 82607; 82652; 85025

== ENCOUNTER → 2021-04-29 12:46 | Outpatient (CLI) | payer OTHER, SELFPAY ==
[2020-12-20 00:15] VITALS: BMI 23.3
--- NOTE | 2021-04-29 | DI.MG.S_ITS ---
BILATERAL DIGITAL DIAGNOSTIC MAMMOGRAM 3D/2D: 04/29/2021 CLINICAL: Short term follow up of the left breast, due for bilateral imaging. Comparison is made to exams dated: 10/20/2020 mammogram, 05/08/2020 mammogram, 04/19/2020 mammogram, and 05/26/2018 mammogram - [facility]. The tissue of both breasts is heterogeneously dense. This may lower the sensitivity of mammography. The calcifications in the left breast posterior depth medial region seen on the craniocaudal view only now appear associated with a vessel, clumped along the vessel margin. These are only seen in a single view and are less prominent. No other significant masses, calcifications, or other findings are seen in either breast. IMPRESSION: BENIGN The calcifications in the left breast are consistent with vascular calcifications and are benign. There is no mammographic evidence of malignancy. Return to annual mammogram screening schedule is recommended. Findings and recommendations were conveyed to the patient at time of exam. This exam was interpreted at Station ID: [id number]. NOTE: For mammograms, a report in lay terms will be sent to the patient. Approximately 15% of breast malignancies will not be visualized mammographically. In the management of a palpable breast mass, a negative mammogram must not discourage biopsy of a clinically suspicious lesion. Electronically Signed By: Lorena marques/:04/29/2021 13:31:31 letter sent: Normal Exam ACR BI-RADS Category 2: Benign Finding(s) [id number]
== END ==
PROVIDERS: PCP Student in an Organized Health Care Education/Training Program; Referring Provider Student in an Organized Health Care Education/Training Program; Visit Provider Student in an Organized Health Care Education/Training Program
DX: R92.8 Other abnormal and inconclusive findings on diagnostic imaging of breast (principal); R92.1 Mammographic calcification found on diagnostic imaging of breast
CPT/HCPCS: 77066; G0279

== ENCOUNTER → 2021-05-20 10:48 | Outpatient (CLI) | payer OTHER, SELFPAY ==
[2020-12-20 00:15] VITALS: BMI 23.3
[2021-05-20 14:40] LABS: Add Manual Diff / Slide Review NO; Basophils Absolute Auto 0 /uL (0-100); Basophils Percent Auto 0.8 % (0-2); Eosinophils Absolute Auto 0 /uL (0-450); Eosinophils Percent Auto 0.6 % (2-4); Hematocrit 38.6 % (36-46); Hemoglobin 12.9 g/dL (12.0-16.0); Lymphocytes Absolute Auto 1200 /uL (1100-4500); Lymphocytes Percent Auto 25.6 % (25-40); Mean Corpuscular HGB Conc 33.5 % (30-36); Mean Corpuscular Hemoglobin 32.6 PG (26-34); Mean Corpuscular Volume 97.4 fL (80-100); Monocytes Absolute Auto 500 /uL (0-900); Monocytes Percent Auto 9.9 % (3-14); Neutrophils Absolute Auto 3000 /uL (1500-7000); Neutrophils Percent Auto 63.1 % (50-75); Platelet Count 234 X10^3/uL (150-400); Red Blood Cell Count 3.96 X10^6/uL (4.0-5.2); Red Cell Distribution Width 13.2 % (11.6-14.8); White Blood Cell Count 4.8 X10^3/uL (4.5-11.0)
[2021-05-20 14:48] LABS: HEMOLYSIS < 15 (0-50); Iron 123 ug/dL (37-170)
[2021-05-20 14:51] LABS: Alanine Aminotransferase 27 IU/L (<35); Albumin 4.4 g/dL (3.5-5.0); Albumin Globulin Ratio 1.6 (1.0-2.8); Alkaline Phosphatase 75 U/L (38-126); Aspartate Aminotransferase 33 IU/L (14-36); BUN Creatinine Ratio 24.2 (6-22); Bilirubin Total 0.5 mg/dL (0.2-1.3); Blood Urea Nitrogen 16 mg/dL (7-17); Calcium 9.1 mg/dL (8.4-10.2); Carbon Dioxide 34 mmol/L (22-32); Chloride 95 mmol/L (98-107); Cholesterol 205 mg/dL (140-199); Estimated Glomerular Filt Rate > 60.0 mL/min (>60); Globulin 2.7 g/dL (1.7-4.1); Glucose 80 mg/dL (80-110); HEMOLYSIS < 15 (0-50); Potassium 4.7 mmol/L (3.4-5.1); Sodium 133 mmol/L (137-145); Total Protein 7.1 g/dL (6.3-8.2); Triglycerides 44 mg/dL (35-150)
[2021-05-20 14:59] LABS: Percent Iron Saturation 49 % (15-50); Total Iron Binding Capacity 251 ug/dL (265-497); Transferrin 218 mg/dL (206-381)
[2021-05-20 15:00] LABS: HDL Cholesterol 172 mg/dL (40-60); LDL Cholesterol Calculated 24 mg/dL (<100)
[2021-05-20 15:21] LABS: TSH w/ Reflex to FT4 1.43 uIU/mL (0.47-4.68)
[2021-05-20 15:27] LABS: Ferritin 35 ng/mL (11-264)
== END ==
PROVIDERS: PCP Student in an Organized Health Care Education/Training Program; Referring Provider Student in an Organized Health Care Education/Training Program; Visit Provider Student in an Organized Health Care Education/Training Program
DX: E03.9 Hypothyroidism, unspecified (principal); L65.9 Nonscarring hair loss, unspecified; I10 Essential (primary) hypertension
CPT/HCPCS: 36415; 80053; 80061; 82728; 83540; 83550; 84443; 85025

== ENCOUNTER → 2021-10-01 12:02 | Outpatient (CLI) | payer OTHER, SELFPAY ==
[2020-12-20 00:15] VITALS: BMI 23.3
== END ==
PROVIDERS: PCP Student in an Organized Health Care Education/Training Program; Referring Provider Student in an Organized Health Care Education/Training Program; Visit Provider Student in an Organized Health Care Education/Training Program
DX: R30.0 Dysuria (principal)
CPT/HCPCS: 87077; 87086; 87186